=== PATIENT | male | born 1960 | race African-American/Black ===

== ENCOUNTER 2017-04-16 17:57 | Inpatient (IN) ==
[2017-04-16] MEDS ORDERED: HYDROmorphone 2 MG/1 ML VIAL IV STA (19:27)
[2017-04-16] MEDS ORDERED: ONDANSETRON 4 MG/2 ML VIAL IV STA (19:27)
[2017-04-16 19:34] LABS: Basophils % 0.2 % (0.0-0.8); Hematocrit 34.9 VOL% (42.0-52.0); Hemoglobin 12.1 GM/DL (14.0-18.0); Immature Granulocytes % 0.2 %; Immature Granulocytes Absolute 0.01 #; Lymphocytes # 1.1 10*3/uL (1.4-4.0); Lymphocytes % 25.5 % (21.2-54.2); Mean Corpuscular HGB Conc 34.7 GM/DL (32-36); Mean Corpuscular Hemoglobin 25 PG (27-34); Mean Corpuscular Volume 71.1 FL (87-102); Mean Platelet Volume 10.1 FL (9.6-12.0); Monocytes # 0.4 10*3/uL (0.11-0.8); Monocytes % 9.4 % (1.7-12.7); Neutrophils # 2.7 10*3/uL (1.4-7.4); Neutrophils % 63.7 % (38.7-73.9); Platelet Count 167 T/CUMM (130-400); Red Blood Count 4.91 MC/CUMM (3.8-5.5); Red Cell Distribution Width 14.8 % (9.3-17.3); White Blood Count 4.2 T/CUMM (4-12)
[2017-04-16 20:11] LABS: Apearance,Urine CLEAR (Clear); Bilirubin,Urine Negative (Negative); Blood, Urine Small mg/dL (Negative); Glucose,Urine (UA) Negative (Negative); Ketones,Urine Negative (Negative); Mucus,Urine Occasional /LPF (Occasional); Nitrite,Urine Negative (Negative); Protein,Urine 30 MG/DL; RBC,Urine <1 /HPF (0-4); Urine Color Straw (Yellow); Urine Specific Gravity 1.002 (1.001-1.035); Urine Urobilinogen < 2.0 EU/DL (0.2-1.0); WBC,Urine <1 /HPF (0-6)
--- NOTE | 2017-04-16 20:30 | XRay Report ---
History: Abdominal pain. Umbilical hernia Date: 04/16/2017 Study: Flat and erect abdomen Comparison exam: No previous similar There is no evidence of pneumoperitoneum. Peritoneal dialysis catheter overlies the pelvis at the midline. The bowel gas pattern is nonobstructive without gross mass lesion. No acute osseous abnormality is seen. Impression: No acute abnormality is identified. Peritoneal dialysis catheter PROCEDURE INTERPRETED AT [facility] DEPARTMENT OF RADIOLOGY Final Report Signed by: Dr. Joelle Anaya
[2017-04-16] MEDS ORDERED: HYDROmorphone 2 MG/1 ML VIAL ONE (20:36)
[2017-04-16] MEDS ORDERED: ONDANSETRON 4 MG/2 ML VIAL ONE (20:36)
--- NOTE | 2017-04-16 20:37 | CT Report ---
History: Abdominal pain. Umbilical hernia Date: 04/16/2017 Study: CT abdomen and pelvis without contrast Comparison exam: September 07, 2015 Technique: Spiral CT sections were obtained from the lung bases to the pubic symphysis without contrast. CT abdomen: The partially visualized lung bases are clear. There is no gross pleural or pericardial effusion. There is no evidence of pneumoperitoneum. There is moderate free fluid in the abdomen and pelvis which may be largely related to the patient's peritoneal dialysis. The liver, spleen, bile ducts, pancreas, and adrenal glands are unremarkable. The fluid-filled gallbladder is grossly unremarkable. The kidneys are atrophic in this patient known to be on dialysis. There is no renal mass. There is no focal aneurysm of the abdominal aorta. There is no bird bowel obstruction. There is some nonspecific shotty para-aortic lymphadenopathy. There are 2 separate small periumbilical hernias containing fat which have increased in size since the comparison CT. The larger hernia has some edematous fat which may indicate inflammation. CT pelvis: No soft tissue mass of the pelvis is seen. Small fat-containing inguinal hernias are present bilaterally. Impression: There are 2 separate small periumbilical hernias at the midline, each of which contains fat. There is some edematous fat within the larger hernia which may indicate trapped fat or nonspecific inflammation. There is no incarcerated bowel. There is moderate free fluid in the abdomen and pelvis which may be related to the patient's peritoneal dialysis No significant abnormality otherwise The CT exam was performed using one or more of the following dose reduction techniques: Automated exposure control, adjustment of the mA and/or kV according to patient size, or use of iterative reconstruction technique. PROCEDURE INTERPRETED AT [facility] DEPARTMENT OF RADIOLOGY Final Report Signed by: Dr. Joelle Anaya
--- NOTE | 2017-04-16 20:55 | Emergency Department Note ---
Katy Main Brittany, am scribing for, and in the presence of, Lavell Morton DO 19 :36. I, Lavell Morton DO, personally performed the services described in this documentation, ascribed by Bernie Burns in my presence, and it is both accurate and complete . Arrival - Arrival Chief Complaint: Abdominal / Flank Pain Stated Complaint: dialysis pt/navel swelling with pain ED Nursing Triage Note: c/o swelling to the umbilical area - states that the swelling started today., denies having increase temp., denies having chills, pertineal dialysis since October , states he has not done his dialysis today, states the area is very painful , Mode of Arrival: Ambulatory Limitations: No Limitations Source: Patient Time Seen by Provider: 04/16/17 19:22 - History of Present Illness HPI Narrative: This is a 58 y/o black male,who presents to the ED with c/o pain around the umbilical area which started 4 hours [facility] [employer]. He states the area is swollen more than normal. He denies any nausea. He has a known hx of renal failure and renal problems. He states he normally takes Dialysis at night. He states he took his last dialysis Tx last night. He reports he has been on the dialysis since October of 2016. Pt notes he has had a catheter since September of 2016 as well. He reports he has seen his PCP about the issue and reports she told him in the issue persists, he may have a hernia. Pt has no other complaints/pain in the ED a this time. Pt has a PMhx of HTN, CVA, cerebrovascular disease, renal problems, renal failure, dialysis at night. Pt has had an appendectomy and orthopedic surgery. Pt has a family medical Hx of HTN. Pt is a current every day smoker, but denies the use of alcohol and street drugs. Onset (ago): hour(s) (Started 4 hours [facility]) Consistency: constant Severity: moderate Allergies/Adverse Reactions: Allergies Allergy/AdvReac Type Severity Reaction Status Date / Time No Known Allergies Allergy Verified 04/16/17 18:05 Home Medications: Home Medications Medication Instructions Recorded Confirmed Type Hydralazine HCl 25 mg PO DAILY 05/14/15 07/29/16 History amLODIPine [Norvasc] 10 mg PO DAILY 10/07/15 12/22/16 History cloNIDine HCl [Clonidine HCl] 0.1 mg PO DAILY 05/14/15 07/29/16 History Review of System - Review of System 12 point system: reviewed and no additional remarkable complaints except as stated - Review of System Gastrointestinal: Present: abdominal pain (Swelling and pain around the umbilical area). Absent: nausea Medical,Surgical,& Family Hx - Medical History Cardio: History of: Cerebrovascular Disease, Hypertension No history of: CHF, CAD Neurology: History of: Cerebrovascular Accident (2011) No history of: Seizures Endocrine: No history of: Diabetes Mellitus (IDDM), Diabetes Mellitus (NIDDM) Respiratory: No history of: Asthma, COPD Renal: History of: Dialysis, Renal Failure (dr bo), Renal Problems Genitourinary: No history of: Bladder Problem, Prostate Problems, Genitourinary Cancer Gastrointestinal: No history of: Gastrointestinal Bleed, Hepatitis, Liver Problems, Pancreatitis Hematology: No history of: Anemia - Surgical History Abdominal Surgeries: Surgical HX of: Appendectomy Orthopedic Surgeries: Surgical HX of;: Orthopedic Surgery (Left femur fracture 05/2015) - Family History Family History: Reports;: Family Hypertension (mother) - Social History Smoking Status: Current every day smoker Frequency of Alcohol Use: None Type of Drug Use: None Exam Vital Signs: Vital Signs Temperature 97.8 F 04/16/17 18:53 Pulse Rate 82 04/16/17 20:00 Respiratory Rate 18 04/16/17 20:00 Blood Pressure 179/98 04/16/17 20:00 O2 Sat by Pulse Oximetry 100 04/16/17 18:53 - General General appearance: alert, in no apparent distress - Head Head exam: Present: atraumatic, normocephalic, normal inspection - Eye Eye exam: Present: normal appearance, PERRL, EOMI. Absent: nystagmus - ENT ENT exam: Present: normal exam, mucous membranes moist - Neck Neck exam: Present: normal inspection, full ROM, trachea midline. Absent: tenderness - Chest Chest inspection: Present: normal inspection, symmetric chest wall rise. Absent : tenderness - Respiratory Respiratory exam: Present: normal lung sounds bilaterally. Absent: respiratory distress - Cardiovascular Cardiovascular exam: Present: regular rate, normal rhythm, normal heart sounds. Absent: murmur, rubs, gallop, clicks, JVD - Abdominal Exam Abdominal exam: Present: soft, distention (Umbilical hernia present about 1.5 in in diameter), tenderness (Tenderness around the umbilical area), normal bowel sounds. Absent: guarding, rebound, rigidity - Rectal Exam Rectal exam: Present: deferred - Extremities Exam Extremities exam: Present: normal inspection, full ROM, normal capillary refill. Absent: tenderness, pedal edema, joint swelling, calf tenderness - Back Exam Back exam: Present: normal inspection, full ROM. Absent: tenderness, muscle spasm, rashes - Neurological Exam Neurological exam: Present: alert, oriented X3, CN II-XII intact. Absent: motor sensory deficit - Psychiatric Psychiatric exam: Present: normal affect, normal mood. Absent: depressed, agitated, anxious, flat affect, manic - Skin Skin exam: Present: warm, dry, intact, normal color. Absent: rash, cyanosis, diaphoresis, erythema, pallor, mottled Course - Reevaluation(s) Reevaluation #1: CT show incarcerated fat. Spoke with Dr. Garcia (surgeon)--states that since the pt is on dialysis that the hospitalist would need to admit and he would consult. Hospitalist to see pt here. Time: 20:53 Results - Labs CBC & BMP: 04/16/17 18:55 Disposition Clinical Impression: Umbilical hernia with obstruction Case discussed with: patient Disposition: Still a Patient Condition: Stable Time of Disposition: 20:54 (Hospitalist to admit)
[2017-04-16 21:18] LABS: Albumin 2.3 G/DL (3.4-5.0); Bilirubin,Total 0.4 MG/DL (0.2-1.0); Calcium 7.6 MG/DL (8.5-10.1); Osmolality,Calculated 269.1 MOS/KG (273-304); Potassium 2.6 MMOL/L (3.5-5.1); Total Protein 6.4 G/DL (6.4-8.3)
--- NOTE | 2017-04-16 21:27 | Hospitalist History & Physical ---
<Nohemy Stone - Last Filed: 04/16/17 23:50> Assessment and Plan - Time spent with patient Time spent with patient: Greater than 30 minutes Time spent discussing smoking cessation with patient: 3 to 10 minutes (1) Umbilical hernia Status: Acute Assessment and plan: Surgery consultation Pain medications PRN Will hold DVT prophylaxis for now due to likely surgery Current Visit: Yes (2) Chronic kidney disease Status: Chronic Assessment and plan: Will need to continue PD Nephrology consultation Creatinine baseline for patient Current Visit: No (3) HTN (hypertension) Status: Chronic Assessment and plan: Will resume medication regimen when home medicines confirmed Current Visit: No (4) Hypokalemia Status: Acute Assessment and plan: Will replace with K rider Pending AM labs Current Visit: Yes History of Present Illness Chief complaint: abdominal pain History of present illness: Called to [facility] for a Mr. Pino who is a 57 year old male that presents with a complaint of umbilical pain that started five hours ago. Patient states he was not doing any type of activity at the time he noticed the pain but realized when he ran his hand across his abdomen. He pulled his shirt up and noticed his protruding navel. He telephoned his home health nurse and she instructed him to go to the ED. Once in the ED, he received a CT A/P that revealed 2 separate small periumbilical hernias. The larger hernia suggest trapped fat or inflammation. No incarcerated bowel but moderate free fluid in A/P that could be related to peritoneal dialysis. Patient denied n/v/d, fevers, chest pain, shortness of breath, hematemsis, melena, but admitted to issues with constipation. His last BM was this AM and was described as normal. Patient has a history of peritoneal dialysis, HTN, left femur fracture, and appendectomy. He will be admitted into the hospital for surgical and nephrology consultation, pain and nausea medications, and electrolyte replacement. Home Medications Medication Instructions Recorded Confirmed Type Hydralazine HCl 25 mg PO DAILY 05/14/15 07/29/16 History amLODIPine [Norvasc] 10 mg PO DAILY 05/14/15 07/29/16 History cloNIDine HCl [Clonidine HCl] 0.1 mg PO DAILY 05/14/15 07/29/16 History Allergies Allergy/AdvReac Type Severity Reaction Status Date / Time No Known Allergies Allergy Verified 04/16/17 18:05 Medical,Surgical,& Family Hx - Medical History Cardio: History of: Cerebrovascular Disease, Hypertension No history of: CHF, CAD Neurology: History of: Cerebrovascular Accident (2011) No history of: Seizures Endocrine: No history of: Diabetes Mellitus (IDDM), Diabetes Mellitus (NIDDM) Respiratory: No history of: Asthma, COPD Renal: History of: Dialysis, Renal Failure (dr barragan), Renal Problems Genitourinary: No history of: Bladder Problem, Prostate Problems, Genitourinary Cancer Gastrointestinal: No history of: Gastrointestinal Bleed, Hepatitis, Liver Problems, Pancreatitis Hematology: No history of: Anemia - Surgical History Abdominal Surgeries: Surgical HX of: Appendectomy Orthopedic Surgeries: Surgical HX of;: Orthopedic Surgery (Left femur fracture 05/2015) - Family History Family History: Reports;: Family Cancer (mom, aunt, sister- breast CA; brother- colon CA; father-unknown CA), Family Hypertension (mother, sister, aunt) - Social History Smoking Status: Current every day smoker (1 pack per week) Have you smoked in the last 12 months: Yes Time spent discussing smoking cessation with patient: 3 to 10 minutes Frequency of Alcohol Use: None Type of Drug Use: None Marital Status: Single Lives With:: Parent Functional capacity: independent ambulation - Constitutional Constitutional: Absent: anorexia, chills, fatigue, fever(s), weakness - Cardiovascular Cardiovascular: Absent: chest pain at rest, chest pain with activity, dyspnea, edema, lightheadedness, palpitations - Respiratory Respiratory: Absent: cough, dyspnea, hemoptysis - Gastrointestinal Gastrointestinal: Present: abdominal pain, constipation. Absent: change in bowel habits, coffee ground emesis, diarrhea, dyspepsia, heartburn, hematemesis , loose stools, nausea - Genitourinary Genitourinary: Absent: difficulty urinating - Musculoskeletal Musculoskeletal: Absent: arthralgias Exam - Constitutional Vitals: Period Temp Pulse Resp BP Sys/Schilling Pulse Ox Last 24 Hr 97.8 F-98.1 F 79-88 18-18 155-179/80-98 100-100 General appearance: normal weight, no acute distress - Head Head exam: Present: normal inspection, normocephalic - Eye Eye exam: Present: EOMI Pupils: Present: IZABELLA, normal accommodation - ENT ENT exam: Present: normal exam, normal external ear exam - Neck Neck exam: Present: normal inspection - Respiratory Respiratory exam: Present: clear to auscultation bilaterally. Absent: accessory muscle use (Respirations even and non-labored. Symmetrical rise and fall of chest noted. ), rales - Cardiovascular Cardiovascular exam: Present: regular rate and rhythm. Absent: carotid bruit - GI/Abdominal GI/Abdominal exam: Present: normal bowel sounds, tenderness (periumbilical), soft, other (PD catheter intact to left abdomen). Absent: firm - Extremities Exam Extremities exam: Present: normal inspection, normal capillary refill - Back Exam Back exam: Present: normal inspection - Neurological Exam Neurological exam: Present: alert, oriented X3 (Answers all questions appropriately. Makes good eye contact. ) - Psychiatric Psychiatric exam: Present: normal affect, normal mood - Skin Skin exam: Present: normal color, warm, dry Results - Labs CBC & BMP: 04/16/17 18:55 04/16/17 20:41 Lab Results: I have reviewed the past 24 hour labs - Diagnostic Findings Procedure: CT Abdomen and Pelvis: report reviewed by me (2 periumbilical hernias ) <Jonh Tran - Last Filed: 04/17/17 02:22> Assessment and Plan (1) Umbilical hernia Status: Acute Assessment and plan: I saw and examined the patient in conjunction with nurse practitioner Nohemy Stone and agree with the above. The patient is having moderate pain at this point which was relieved by his pain medication. He is not vomiting. IV potassium replacement has completed. On exam there is some erythema associated with protruding umbilical hernia which is moderately tender including the surrounding area. Surgery has been consulted. The patient did just eat something at 2 AM. He will be made n.p.o. in case surgery wants to address this later today. Current Visit: Yes History of Present Illness History of present illness: Mr. Pino is a 57 year old male Exam - Constitutional Vitals: Period Temp Pulse Resp BP Sys/Schilling Pulse Ox Last 24 Hr 97.4 F-98.1 F 74-88 18-20 154-179/80-98 98-100 Results - Labs CBC & BMP: 04/16/17 18:55 04/16/17 20:41
[2017-04-16] MEDS ORDERED: ACETAMINOPHEN 325 MG TABLET PO PRN (22:14)
[2017-04-16] MEDS ORDERED: NICOTINE 21 MG/24 HR PATCH TRANSDERM PRN (22:14)
[2017-04-16] MEDS ORDERED: ONDANSETRON 4 MG/2 ML VIAL IV PRN (22:14)
[2017-04-16] MEDS ORDERED: DOCUSATE SODIUM 100 MG CAPSULE PO PRN (22:14)
[2017-04-17] MEDS: POTASSIUM CHLORIDE RIDER 10 MEQ in PREMIX 1 EACH IV SCH ×4 (00:41→04:46)
--- NOTE | 2017-04-17 07:40 | General Surgery Consult Note ---
Assessment and Plan - Time spent with patient Time spent with patient: Less than 30 minutes (1) Umbilical hernia Status: Acute Assessment and plan: This is actually an incarcerated incisional hernia. He had a laparoscopic appendectomy at this location. This is fat-containing only and does not have any evidence of obstruction. This needs to be repaired. He understands that this may interfere with his peritoneal dialysis and may result in leakage of fluid. He understands that he is at increased risk of abdominal complications and recurrence because of his peritoneal dialysis. We discussed the risk of peritonitis or injury to bowel or bladder, medical complications or anesthetic complications related to his renal failure. He understands these risks and wishes to proceed Current Visit: Yes History of Present Illness Chief complaint: Incarcerated hernia History of present illness: Mr. Pino is a 57 year old male Who for several days has had pain and swelling in his umbilicus. This actually feels better since he was admitted. He is on peritoneal dialysis and has been for the last year or so. His peritoneal catheter was placed at [facility]. He is not having nausea or vomiting. He is not having fever or chills. Home Medications Medication Instructions Recorded Confirmed Type Hydralazine HCl 25 mg PO DAILY 05/14/15 07/29/16 History amLODIPine [Norvasc] 10 mg PO DAILY 05/14/15 07/29/16 History cloNIDine HCl [Clonidine HCl] 0.1 mg PO DAILY 05/14/15 07/29/16 History Allergies Allergy/AdvReac Type Severity Reaction Status Date / Time No Known Allergies Allergy Verified 04/16/17 18:05 Medical,Surgical,& Family Hx - Medical History Cardio: History of: Cerebrovascular Disease, Hypertension No history of: CHF, CAD Neurology: History of: Cerebrovascular Accident (2011) No history of: Seizures Endocrine: No history of: Diabetes Mellitus (IDDM), Diabetes Mellitus (NIDDM) Respiratory: No history of: Asthma, COPD Renal: History of: Dialysis, Renal Failure (dr barragan), Renal Problems Genitourinary: No history of: Bladder Problem, Prostate Problems, Genitourinary Cancer Gastrointestinal: No history of: Gastrointestinal Bleed, Hepatitis, Liver Problems, Pancreatitis Hematology: No history of: Anemia - Surgical History Thoracic Surgeries: Patient denies;: Organ Transplant Abdominal Surgeries: Surgical HX of: Appendectomy Orthopedic Surgeries: Surgical HX of;: Orthopedic Surgery (Left femur fracture 05/2015) - Family History Family History: Reports;: Family Cancer (mom, aunt, sister- breast CA; brother- colon CA; father-unknown CA), Family Hypertension (mother, sister, aunt) - Social History Smoking Status: Current every day smoker (1 pack per week) Frequency of Alcohol Use: None Type of Drug Use: None - Constitutional Constitutional: Absent: chills, fever(s), weight loss - Cardiovascular Cardiovascular: Absent: chest pain at rest, chest pain with activity, dyspnea, dyspnea on exertion - Respiratory Respiratory: Absent: dyspnea, hemoptysis, dyspnea on exertion - Gastrointestinal Gastrointestinal: Present: abdominal pain. Absent: cramping, hematemesis, hematochezia, nausea, vomiting, jaundice - Genitourinary Genitourinary: Absent: hematuria - Musculoskeletal Musculoskeletal: Absent: back pain - Neurological Neurological: Absent: focal weakness, syncope - Endocrine Endocrine: Absent: polyuria Hematologic/Lymphatic: Absent: easy bleeding, easy bruising Exam - Constitutional Vitals: Period Temp Pulse Resp BP Sys/Schilling Pulse Ox Last 24 Hr 97.4 F-98.1 F 68-88 18-20 130-179/80-98 96-100 General appearance: no acute distress - Head Head exam: Present: normocephalic - Eye Eye exam: Absent: scleral icterus - ENT Mouth exam: Present: normal voice - Neck Neck exam: Present: trachea midline - Respiratory Respiratory exam: Present: clear to auscultation bilaterally. Absent: accessory muscle use - Cardiovascular Cardiovascular exam: Present: RRR - GI/Abdominal GI/Abdominal exam: Present: hernia, soft. Absent: distended, guarding, tenderness, rebound - Neurological Exam Neurological exam: Present: alert, oriented X3. Absent: motor sensory deficit Speech: Present: normal - Skin Skin exam: Present: normal color Quality Measures - VTE Contraindication to Pharmacological VTE Prophylaxis: High Risk of Bleeding - Stroke Symptom Onset Unknown: No Results - Labs CBC & BMP: 04/16/17 18:55 04/16/17 20:41 Lab Results: I have reviewed the past 24 hour labs
[2017-04-17 08:05] LABS: Basophils % 0.2 % (0.0-0.8); Eosinophils # 0.1 10*3/uL (0.0-0.87); Eosinophils % 1.7 % (0.00-10.9); Hematocrit 31.2 VOL% (42.0-52.0); Hemoglobin 10.8 GM/DL (14.0-18.0); Immature Granulocytes % 0.4 %; Immature Granulocytes Absolute 0.02 #; Lymphocytes # 0.8 10*3/uL (1.4-4.0); Lymphocytes % 17.7 % (21.2-54.2); Mean Corpuscular HGB Conc 34.6 GM/DL (32-36); Mean Corpuscular Hemoglobin 25 PG (27-34); Mean Corpuscular Volume 71.6 FL (87-102); Mean Platelet Volume 11.2 FL (9.6-12.0); Monocytes # 0.3 10*3/uL (0.11-0.8); Monocytes % 6.9 % (1.7-12.7); Neutrophils # 3.4 10*3/uL (1.4-7.4); Neutrophils % 73.1 % (38.7-73.9); Platelet Count 126 T/CUMM (130-400); Red Blood Count 4.36 MC/CUMM (3.8-5.5); Red Cell Distribution Width 15.2 % (9.3-17.3); White Blood Count 4.6 T/CUMM (4-12)
[2017-04-17 08:20] LABS: Fibrinogen Quant Value 349 MG% (200-400); INR 1.1; PT Patient Result 11.5 SECS; Partial Thromboplastin Time 25.4 SECS (0-40)
[2017-04-17 08:50] LABS: Albumin 1.9 G/DL (3.4-5.0); Bilirubin,Total 0.7 MG/DL (0.2-1.0); Calcium 7.5 MG/DL (8.5-10.1); Osmolality,Calculated 276.5 MOS/KG (273-304); Potassium 3.4 MMOL/L (3.5-5.1); Total Protein 5.5 G/DL (6.4-8.3)
[2017-04-17] MEDS: PANTOPRAZOLE 40 MG TABLET PO SCH (09:47)
--- NOTE | 2017-04-17 10:05 | Hospitalist Progress Note ---
Assessment and Plan (1) Incisional hernia Status: Acute Assessment and plan: He has an incarcerated incisional hernia. He is scheduled to undergo surgery. Current Visit: Yes Hospitalist: Subjective Interval history: Patient is doing well with no complaints. He was seen in consultation by general surgery. It is their impression that he has an incarcerated incisional hernia. He is scheduled to undergo surgery. Exam - Constitutional Vitals: Period Temp Pulse Resp BP Sys/Schilling Pulse Ox Last 24 Hr 97.4 F-98.1 F 68-88 18-20 130-179/80-98 96-100 General appearance: no acute distress - Head Head exam: Present: normal inspection - Neck Neck exam: Present: normal inspection - Respiratory Respiratory exam: Present: clear to auscultation bilaterally - Cardiovascular Cardiovascular exam: Present: regular rate and rhythm - GI/Abdominal GI/Abdominal exam: Present: normal bowel sounds, soft, other (Nontender with no palpable masses or hepatosplenomegaly.) - Extremities Exam Extremities exam: Present: normal inspection - Skin Skin exam: Present: normal color, warm, intact Results - Labs CBC & BMP: 04/17/17 07:30 04/17/17 07:30 Quality Measures - VTE Contraindication to Pharmacological VTE Prophylaxis: High Risk of Bleeding - Stroke Symptom Onset Unknown: No
--- NOTE | 2017-04-17 11:21 | Nephrology Consult Note ---
History of Present Illness Chief complaint: End-stage renal disease History of present illness: Mr. Pino is a 57 year old male history of end-stage renal disease currently on peritoneal dialysis has been on dialysis for approximately 1 year. He continues to do well his PD exchanges. On yesterday patient noticed umbilical hernia that was associated with severe pain. CT scan confirmed a hernia and noted that it was reproducible on examination with surgery. Patient is scheduled to have the hernia repaired. Nephrology is been consulted for renal issues. Discussion with patient about the possibility of needing to do hemodialysis he states he is very resistant of doing hemodialysis other than his peritoneal exchanges. At this time continuing to support patient with PD dialysis and will continue with PD exchanges lower volumes at 2 L of dialysate fluid. Home Medications Medication Instructions Recorded Confirmed Type amLODIPine [Norvasc] 10 mg PO DAILY 05/14/15 04/17/17 History cloNIDine HCl [Clonidine HCl] 0.1 mg PO BID 05/14/15 04/17/17 History Calcitriol 0.5 mcg PO DAILY 04/17/17 04/17/17 History Lisinopril [Prinivil] 20 mg PO DAILY 04/17/17 04/17/17 History Allergies Allergy/AdvReac Type Severity Reaction Status Date / Time No Known Allergies Allergy Verified 04/16/17 18:05 Medical,Surgical,& Family Hx - Medical History Cardio: History of: Cerebrovascular Disease, Hypertension No history of: CHF, CAD Neurology: History of: Cerebrovascular Accident (2011) No history of: Seizures Endocrine: No history of: Diabetes Mellitus (IDDM), Diabetes Mellitus (NIDDM) Respiratory: No history of: Asthma, COPD Renal: History of: Dialysis, Renal Failure (dr barragan), Renal Problems Genitourinary: No history of: Bladder Problem, Prostate Problems, Genitourinary Cancer Gastrointestinal: No history of: Gastrointestinal Bleed, Hepatitis, Liver Problems, Pancreatitis Hematology: No history of: Anemia - Surgical History Thoracic Surgeries: Patient denies;: Organ Transplant Abdominal Surgeries: Surgical HX of: Appendectomy Orthopedic Surgeries: Surgical HX of;: Orthopedic Surgery (Left femur fracture 05/2015) - Family History Family History: Reports;: Family Cancer (mom, aunt, sister- breast CA; brother- colon CA; father-unknown CA), Family Hypertension (mother, sister, aunt) - Social History Smoking Status: Current every day smoker (1 pack per week) Frequency of Alcohol Use: None Type of Drug Use: None Review of Systems Constitutional: no fatigue, no fever(s), no lethargy Gastrointestinal: abdominal pain, other (Hernia) Genitourinary: no flank pain Musculoskeletal: no arthralgias Exam - Vital Signs Vital signs: Period Temp Pulse Resp BP Sys/Schilling Pulse Ox Last 24 Hr 97.4 F-98.1 F 68-88 18-20 130-179/80-98 96-100 - General Appearance General appearance: well-developed, well-nourished EENT: ATNC Neck: supple Respiratory: clear Cardiology: regular rate, regular rhythm Gastrointestinal: normoactive bowel sounds, no guarding (Umbilical hernia noted) Integumentary: no rash Neurologic: alert and oriented x3, CN 3-12 intact Musculoskeletal: no clubbing Psychiatric: mood/affect appropriate, cooperative Results - Labs CBC & BMP: 04/17/17 07:30 04/17/17 07:30 Assessment and Plan (1) End stage renal disease Status: Chronic Assessment and plan: Continue with PD exchanges 2 L bags 2.5% dextrose 4 hour dwells 4 exchanges. Current Visit: Yes (2) HTN (hypertension) Status: Chronic Current Visit: No Qualifiers: Hypertension type: essential hypertension Qualified Code(s): I10 - Essential (primary) hypertension (3) Umbilical hernia with obstruction Status: Acute Assessment and plan: Appreciate input from surgery. Current Visit: Yes
[2017-04-17] MEDS: cloNIDine 0.1 MG TABLET PO SCH (20:59)
--- NOTE | 2017-04-18 08:07 | EKG Report ---
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
[2017-04-18] MEDS ORDERED: LIDOCAINE 1%/EPI INJ 20 ML VIAL ONE (08:21)
[2017-04-18] MEDS ORDERED: ceFAZolin 1,000 MG VIAL ONE (08:21)
[2017-04-18] MEDS ORDERED: BUPIVACAINE MPF 0.25% /EPI 30 ML VIAL ONE (08:21)
[2017-04-18] MEDS ORDERED: PROPOFOL 200 MG/20 ML VIAL IV ONE (08:31)
[2017-04-18] MEDS ORDERED: LIDOCAINE 2% 5 ML VIAL ONE (08:31)
[2017-04-18] MEDS ORDERED: ROCURONIUM 100 MG/10 ML VIAL IV ONE (08:31)
[2017-04-18] MEDS ORDERED: ESMOLOL 100 MG/10 ML VIAL IV ONE (08:31)
[2017-04-18] MEDS ORDERED: GLYCOPYRROLATE 0.4 MG/2 ML VIAL ONE (08:31)
[2017-04-18] MEDS ORDERED: NEOSTIGMINE 10 MG/10 ML VIAL ONE (08:31)
[2017-04-18] MEDS ORDERED: ONDANSETRON 4 MG/2 ML VIAL ONE (08:31)
--- NOTE | 2017-04-18 09:15 | Operative Note ---
Date of procedure: 04/18/17 Pre-op diagnosis: Incarcerated incisional hernia at umbilicus Post-op diagnosis: same Procedure: Repair incarcerated incisional hernia at umbilicus Findings and technique: After informed consent was obtained patient was brought the operating room and placed in supine position. After successful induction with general anesthesia the patient's abdomen was prepped and draped in usual sterile fashion. An Ioban drape was placed over the skin. Local anesthesia was infiltrated and a small transverse incision made at his umbilicus with sharp dissection was carried down to the hernia sac. This was opened and noted to contain omentum. This was reduced back into the peritoneal cavity and the sac was excised. The fascial defect was about a centimeter in size. This was closed transversely with interrupted 0 Prolene suture in a horizontal mattress fashion. Wound was closed the deep layer of interrupted 3-0 Vicryl suture and skin with skin clips. Anesthesia: GETA, local Surgeon / Physician: Jos Damon III. Estimated blood loss: none Specimens: other (Hernia sac) Condition: stable Disposition: PACU Results - Labs CBC & BMP: 04/17/17 07:30 04/17/17 07:30 Discharge Plan - Discharge Medications No Action Lisinopril [Prinivil] 20 mg PO DAILY Calcitriol 0.5 mcg PO DAILY amLODIPine [Norvasc] 10 mg PO DAILY cloNIDine HCl [Clonidine HCl] 0.1 mg PO BID - Follow Up or Referral - Forms/Instructions
[2017-04-18] MEDS ORDERED: SEVOFLURANE 1 UNIT/15 MINUTE INH ONE (09:40)
[2017-04-18] MEDS ORDERED: MIDAZOLAM 2 MG/2 ML VIAL ONE (09:40)
[2017-04-18] MEDS ORDERED: fentaNYL 100 MCG/2 ML VIAL ONE (09:40)
[2017-04-18] MEDS: PANTOPRAZOLE 40 MG TABLET PO SCH (10:48)
[2017-04-18] MEDS: LISINOPRIL 20 MG TABLET PO SCH (10:48)
[2017-04-18] MEDS: cloNIDine 0.1 MG TABLET PO SCH ×2 (10:49→21:08)
[2017-04-18] MEDS: amLODIPine 10 MG TABLET PO SCH (10:49)
--- NOTE | 2017-04-18 11:39 | Hospitalist Progress Note ---
Assessment and Plan (1) Incisional hernia Status: Acute Assessment and plan: He is stable status post repair of incarcerated inguinal incisional hernia. Current Visit: Yes Hospitalist: Subjective Interval history: Patient is stable status post repair of incarcerated incisional inguinal hernia. Exam - Constitutional Vitals: Period Temp Pulse Resp BP Sys/Schilling Pulse Ox Last 24 Hr 97.4 F-98.9 F 65-104 16-20 136-174/69-97 98-100 General appearance: no acute distress - Head Head exam: Present: normal inspection - Neck Neck exam: Present: normal inspection - Respiratory Respiratory exam: Present: clear to auscultation bilaterally - Cardiovascular Cardiovascular exam: Present: regular rate and rhythm - GI/Abdominal GI/Abdominal exam: Present: normal bowel sounds, other (Incision is bandaged.) - Extremities Exam Extremities exam: Present: normal inspection - Skin Skin exam: Present: normal color, warm, intact Results - Labs CBC & BMP: 04/17/17 07:30 04/17/17 07:30 Quality Measures - VTE Contraindication to Pharmacological VTE Prophylaxis: High Risk of Bleeding - Stroke Symptom Onset Unknown: No
--- NOTE | 2017-04-18 11:47 | Anesthesia Post-Op ---
Anesthesia Post OP - Post Ansesthetic Evaluation Patient seen in post op: Yes Resp: within normal limits CV: within normal limits Mental: within normal limits Temp: within normal limits [id number]: within normal limits Nausea and Vomiting: within normal limits Pain: within normal limits
--- NOTE | 2017-04-18 14:02 | Nephrology Progress Note ---
Nephrology - PN: Subj Interval history: The patient is resting he is now status post hernia repair. No other acute changes. At this time will do 1 L volume PD exchanges today and tomorrow. Exam (PN)-Nephrology - Vital Signs Vital signs: Period Temp Pulse Resp BP Sys/Schilling Pulse Ox Last 24 Hr 97.4 F-98.9 F 65-104 16-20 136-174/69-97 98-100 - General Appearance General appearance: well-developed, well-nourished EENT: ATNC Neck: supple Respiratory: clear Cardiology: regular rate, regular rhythm Gastrointestinal: normoactive bowel sounds, no tenderness Neurologic: alert and oriented x3 Musculoskeletal: no clubbing Psychiatric: mood/affect appropriate, cooperative - Lab 04/17/17 07:30 04/17/17 07:30 Most recent lab results Calcium 7.5 MG/DL (8.5-10.1) L 04/17/17 07:30 Assessment and Plan (1) End stage renal disease Status: Chronic Assessment and plan: Continue with PD exchanges 1 L l bags 2.5% dextrose 4 hour dwells 4 exchanges. Current Visit: Yes (2) HTN (hypertension) Status: Chronic Current Visit: No Qualifiers: Hypertension type: essential hypertension Qualified Code(s): I10 - Essential (primary) hypertension (3) Umbilical hernia with obstruction Status: Acute Assessment and plan: Appreciate input from surgery. Current Visit: Yes
[2017-04-18] MEDS ORDERED: PHENOL 1.4% THROAT SPRAY 177 ML BOTTLE PO PRN (16:06)
--- NOTE | 2017-04-19 07:09 | Event Note ---
He feels well. He has had no drainage from his wound since he is gotten peritoneal dialysis. His abdomen appears benign. He is afebrile with stable vital signs. It is fine from my standpoint to discharge him when he is ready medically. I would like to see him back in the clinic in the next 1-2 weeks.
[2017-04-19 08:18] VITALS: BP 171/90
[2017-04-19] MEDS: amLODIPine 10 MG TABLET PO SCH (09:32)
[2017-04-19] MEDS: cloNIDine 0.1 MG TABLET PO SCH (09:32)
[2017-04-19] MEDS: LISINOPRIL 20 MG TABLET PO SCH (09:33)
[2017-04-19] MEDS: PANTOPRAZOLE 40 MG TABLET PO SCH (09:33)
--- NOTE | 2017-04-19 10:05 | Discharge Summary ---
Hospital Course - Hospital Course Hospital Course: Mr. mancilla was admitted to the hospital with complaints of abdominal pain. He was seen in consultation by Dr. Damon of surgery who performed a repair of an incarcerated incisional inguinal hernia on 04/18/17. He tolerated the procedure without any complication. At the time of his discharge he was comfortable with no complaints and eager to go home. Diagnosis - Discharge Diagnosis (1) Incisional hernia Status: Acute Discharge Plan - Discharge Data Disposition: Disch To Home/Self Care Condition at Discharge: Stable Discharge Diet: advance to your usual diet Activity: resume usual activities as tolerated - Discharge Medications New HYDROcodone/ACETAMIN 5-325 [[place] 5-325] 1 tablet PO Q4H PRN tablet PRN Reason: Pain Mild (1-3) Continue Lisinopril [Prinivil] 20 mg PO DAILY #30 Calcitriol 0.5 mcg PO DAILY amLODIPine [Norvasc] 10 mg PO DAILY cloNIDine HCl [Clonidine HCl] 0.1 mg PO BID - Follow Up or Referral - Forms/Instructions Exam - Constitutional Vitals: Period Temp Pulse Resp BP Sys/Schilling Pulse Ox Last 24 Hr 97.2 F-98.3 F 65-75 14-22 145-174/78-97 96-100 DS: Provider Date of admission: 04/16/17 21:04 Primary care physician: BRETT WAYNE Attending physician on admission: Jonh Tran MD Consults: 04/16/17 22:14 Consult to Physician [CONS] Routine Comment: PD Consulting Provider: Edison Islas Jr. Consulting Provider Notified: Yes Person Notified: Dr. Islas Date Notified: 04/17/17 Time Notified: 07:42 Consult to Physician [CONS] Routine Comment: umbilical hernia Consulting Provider: Jos Damon III. Consulting Provider Notified: Yes Person Notified: Dr. Marisol GAR Date Notified: 04/17/17 Time Notified: 07:00 Discharging clinician: Kyler Hong
--- NOTE | 2017-04-19 11:18 | Pathology Report from [facility] ---
[facility] ACCESSION # : [id number] PATIENT NAME : Boom Casey ORDERING DR : LICO FARMER III, MD CLINICAL HX: Incarcerated incisional hernia POST-OP DX: same SPECIMEN INFO: Hernia sac GROSS DESCRIPTION: The specimen is received in formalin labeled with the patients name and consists of a 2.2 x 1.5 x 0.8 cm pink-patrick fatty tissue fragment. Sectioned and submitted in one cassette. DIAGNOSIS FOR BOOM CASEY: TISSUE LABELED HERNIA SAC: Fibrovascular connective tissue with chronic inflammation consistent with clinical history of hernia sac. COLLECTED DATE: 04/18/2017 [facility] REPORT DATE: 04/19/2017 ELECTRONICALLY SIGNED BY: Homa Mcqueen III, M.D. 04/19/2017 - 10:11:28 [facility]
== END 2017-04-19 11:21 | disposition home or self-care (01) | DRG 353 ==
LOC: N.ED 17:57 → SUATTDRO 21:04 → N.EDINP 21:04 → N.2E 21:47
PROVIDERS: ADMIT Family Medicine

== ENCOUNTER 2017-05-10 07:54 | Inpatient (IN) ==
[2017-05-10] MEDS ORDERED: ONDANSETRON 4 MG/2 ML VIAL IV STA (08:25)
[2017-05-10] MEDS ORDERED: HYDROmorphone 2 MG/1 ML VIAL IV STA (08:25)
[2017-05-10] MEDS ORDERED: ONDANSETRON 4 MG/2 ML VIAL ONE (08:42)
[2017-05-10 08:43] LABS: Basophils % 0.2 % (0.0-0.8); Hematocrit 33.2 VOL% (42.0-52.0); Hemoglobin 11.5 GM/DL (14.0-18.0); Immature Granulocytes % 0.2 %; Immature Granulocytes Absolute 0.01 #; Lymphocytes # 0.4 10*3/uL (1.4-4.0); Lymphocytes % 8.7 % (21.2-54.2); Mean Corpuscular HGB Conc 34.6 GM/DL (32-36); Mean Corpuscular Hemoglobin 25 PG (27-34); Mean Corpuscular Volume 70.6 FL (87-102); Mean Platelet Volume 8.8 FL (9.6-12.0); Monocytes # 0.3 10*3/uL (0.11-0.8); Monocytes % 6.1 % (1.7-12.7); Neutrophils # 4.3 10*3/uL (1.4-7.4); Neutrophils % 84.8 % (38.7-73.9); Platelet Count 151 T/CUMM (130-400); Red Cell Distribution Width 15.7 % (9.3-17.3); White Blood Count 5.1 T/CUMM (4-12)
[2017-05-10] MEDS ORDERED: HYDROmorphone 2 MG/1 ML VIAL ONE (08:43)
--- NOTE | 2017-05-10 08:55 | Emergency Department Note ---
Michele Main Gwan, am scribing for, and in the presence of, Lizandro Flor MD 08:09 . Basia Main James D, MD, personally performed the services described in this documentation, ascribed by Cyndee Bautista in my presence, and it is both accurate and complete 855 . Arrival - Arrival Stated Complaint: abd pain Mode of Arrival: Ambulatory Limitations: No Limitations Source: Patient, Old Records Reviewed, RN Notes Reviewed - History of Present Illness HPI Narrative: Patient is a 57 y/o male, with a hx of renal failure (Peritoneal) and CVA (2011) , who presents to the ED with a c/o abd pain 2000 last night. Pt confirmed that his abd pain is exacerbated with movement and direct palpation. He continued to note that he had a hernia repair performed by Dr. Damon. His last BM was yesterday. Patient is followed by Dr. Barragan. During exam, pt displayed discomfort but not in any distress. No other problems/complaints reported in ED. Consistency: constant Allergies/Adverse Reactions: Allergies Allergy/AdvReac Type Severity Reaction Status Date / Time No Known Allergies Allergy Verified 04/16/17 18:05 Home Medications: Home Medications Medication Instructions Recorded Confirmed Type amLODIPine [Norvasc] 10 mg PO DAILY 05/14/15 05/10/17 History cloNIDine HCl [Clonidine HCl] 0.1 mg PO BID 05/14/15 05/10/17 History Calcitriol 0.5 mcg PO DAILY 04/17/17 05/10/17 History HYDROcodone/ACETAMIN 5-325 [[place] 1 tablet PO Q4H PRN tablet 04/19/17 05/10/17 Rx 5-325] Lisinopril [Prinivil] 20 mg PO DAILY #30 04/19/17 05/10/17 Rx Review of System - Review of System 12 point system: reviewed and no additional remarkable complaints except as stated - Review of System Constitutional: Absent: chills, fever Gastrointestinal: Present: as per HPI, abdominal pain Medical,Surgical,& Family Hx - Medical History Cardio: History of: Cerebrovascular Disease, Hypertension No history of: CHF, CAD Neurology: History of: Cerebrovascular Accident (2011) No history of: Seizures Endocrine: No history of: Diabetes Mellitus (IDDM), Diabetes Mellitus (NIDDM) Respiratory: No history of: Asthma, COPD Renal: History of: Dialysis, Renal Failure (dr barragan), Renal Problems Genitourinary: No history of: Bladder Problem, Prostate Problems, Genitourinary Cancer Gastrointestinal: No history of: Gastrointestinal Bleed, Hepatitis, Liver Problems, Pancreatitis Hematology: No history of: Anemia - Surgical History Thoracic Surgeries: Patient denies;: Organ Transplant Abdominal Surgeries: Surgical HX of: Appendectomy Orthopedic Surgeries: Surgical HX of;: Orthopedic Surgery (Left femur fracture 05/2015) - Family History Family History: Reports;: Family Cancer (mom, aunt, sister- breast CA; brother- colon CA; father-unknown CA), Family Hypertension (mother, sister, aunt) - Social History Smoking Status: Current every day smoker (1 pack per week) Exam Physical Examination: GENERAL: This is a black male in no apparent distress. VITAL SIGNS: HEENT: Head is normocephalic and atraumatic. Pupils are equally round and reactive to light. Extraocular movement are intact. Oropharynx is benign with moist mucous membranes. NECK: Neck is soft and supple without tenderness. There are no masses. There is no lymphadenopathy. LUNGS: Lungs are clear to auscultation bilaterally. Chest rises symmetrically. There is no chest wall tenderness. CV: Heart is regular rate and rhythm without murmurs, rubs, or gallops. ABDOMEN: Abdomen is soft, generalized abdominal tenderness with rebound and guarding consistent with peritonitis. There are no abnormal masses palpated. There is no organomegaly. Bowel sounds are present and active. SKIN: Skin is warm and dry. No rash. EXTREMITIES: Patient has full range of motion without tenderness. There is no pedal edema. NEUROLOGIC: Awake, alert, and oriented x4. Cranial nerves II through XII are grossly intact. There are no motorsensory deficits. PSYCHIATRIC: Normal affect. Normal mood. Vital Signs: Vital Signs Temperature 98.2 F 05/10/17 08:03 Pulse Rate 87 05/10/17 08:53 Respiratory Rate 20 05/10/17 08:53 Blood Pressure 158/86 05/10/17 08:53 O2 Sat by Pulse Oximetry 97 05/10/17 08:53 Course Course Narrative: Cloudy fluid was obtained from peritoneal catheter - Consultations Consultation #1: Discussed with hospitalist. Patient will be admitted to their service. Time: 08:52 Results - Labs CBC & BMP: 05/10/17 08:28 05/10/17 08:26 Lab Results: I have reviewed the patients labs Labs: Laboratory Tests 05/10/17 08:28 Fluid Tot Cell Count 100 Fluid Neutrophils 88 Fluid Lymphocytes 11 Fluid Monocytes 1 Dialysate WBC 89639 Dialysate RBC 450 Microbiology 05/10/17 08:28 Peritoneal Fluid - Peritoneal Gram Stain - Final No organisms seen - Diagnostic Findings Procedure: Abdominal x-ray: image reviewed by me (Nonspecific gas pattern, no free air, gas in the rectum, peritoneal catheter in position), Chest x-ray: image reviewed by me (Atelectasis right lower lobe) Disposition Clinical Impression: Peritonitis due to infected peritoneal dialysis catheter, End-stage renal disease on peritoneal dialysis, Essential hypertension, History of umbilical hernia repair Case discussed with: patient Disposition: Still a Patient Condition: Stable Time of Disposition: 08:53
[2017-05-10 09:01] LABS: Burr Cells Slight; Giant Platelets Few; Hypochromasia 1+; Ovalocytes Slight; Platelet Estimate Normal
[2017-05-10 09:02] LABS: Microcytosis Slight
--- NOTE | 2017-05-10 09:05 | XRay Report ---
Exam: XR chest 1V Indication: Abdominal pain Comparison study: 09/16/2015 radiograph Findings: The heart, mediastinum and bony structures are stable from prior. There has been development of right basilar interstitial opacities and blunting of the right costophrenic angle. Otherwise, similar chronic interstitial scarring changes are again noted throughout both lungs. Minimal peribronchial thickening is also noted centrally. There is no pneumothorax. Impression: Chronic interstitial changes with development of perihilar interstitial opacities, right basilar opacities and blunting of costophrenic angle may represent superimposed bronchitis changes and/or right basilar pneumonia and trace pleural fluid. Consider follow-up radiograph to document resolution. PROCEDURE INTERPRETED AT [facility] DEPARTMENT OF RADIOLOGY Final Report Signed by: Francesco Hernandez
--- NOTE | 2017-05-10 09:08 | XRay Report ---
XR abdomen 2V Clinical Information: Abdominal Pain Comparison: None Findings: Bowel gas pattern is nonspecific and within normal limits. No abnormally dilated small bowel loops are identified to suggest obstruction. There is no free air identified. Scattered fecal material is noted throughout colon, which is otherwise nondilated. No abnormal focal soft tissue masses or calcific densities are identified in the abdomen or pelvis. Peritoneal dialysis catheter noted in place. Right lung base demonstrates patchy opacities which are new from prior. There is no acute osseous abnormality. No suspicious osseous lesions are identified. Impression: No acute radiographic abnormality in the abdomen. Right basilar opacities may represent developing right lung base infiltrate/pneumonia and pleural fluid. PROCEDURE INTERPRETED AT [facility] DEPARTMENT OF RADIOLOGY Final Report Signed by: Francesco Hernandez
[2017-05-10] MEDS ORDERED: PROMETHAZINE 25 MG/1 ML VIAL IM PRN (09:31)
[2017-05-10] MEDS ORDERED: ACETAMINOPHEN 325 MG TABLET PO PRN ×2 (09:31)
[2017-05-10] MEDS ORDERED: guaiFENesin/DM ER 600-30 MG TABLET PO PRN (09:31)
[2017-05-10] MEDS ORDERED: NICOTINE 21 MG/24 HR PATCH TRANSDERM PRN (09:31)
[2017-05-10] MEDS ORDERED: diphenhydrAMINE CAP 25 MG CAPSULE PO PRN (09:31)
--- NOTE | 2017-05-10 09:39 | Hospitalist History & Physical ---
<Payal Jones - Last Filed: 05/10/17 09:36> Assessment and Plan - Time spent with patient Time spent with patient: Greater than 30 minutes (1) Peritonitis due to infected peritoneal dialysis catheter Status: Acute Current Visit: Yes (2) End-stage renal disease on peritoneal dialysis Status: Acute Assessment and plan: 57-year-old -[place] male with history of end-stage renal disease on peritoneal dialysis, hypertension, tobacco abuse admitted by the hospitalist service with peritonitis. Patient's labs and peritoneal fluid is pending from the lab. Patient will be started on Zosyn and Flagyl for now. Consult Dr. Ibrahim for Dr. Barragan for evaluation to see if this can be treated or if PD catheter needs to be removed. Both chest and abdominal x-ray are showing a questionable pneumonia and the Zosyn should cover this as well. Patient will be given pain and nausea medicine and clear liquids for now. Dr. Hong will see and examine patient and further recommendations to follow. Current Visit: Yes (3) Essential hypertension Status: Acute Current Visit: Yes (4) History of umbilical hernia repair Status: Acute Current Visit: Yes (5) Pneumonia Status: Acute Current Visit: Yes History of Present Illness Chief complaint: Abdominal pain History of present illness: Mr. Pino is a 57 year old -[place] male with history of hypertension , tobacco abuse, and end-stage renal disease on PD presenting to the ED with a 1 day history of increasing abdominal pain and nausea. Patient states he was in his normal state of health until last night when he felt his PD for the night. He started having abdominal pain with nausea but no vomiting. He states it increased over the night and worsened this morning. Patient is lying on his side and doubled over. He is afebrile, vital signs stable and his white count is normal. PD fluid removed from his abdomen was cloudy and has been sent to the lab. Patient is tender throughout the abdomen with peritoneal signs. He had incarcerated incisional hernia repair at the umbilicus on [address] Marisol GAR. This incision looks good and is healing well. He denies shortness of breath or chest pain or lower extremity edema. His inspector dials is Dr. Barragan his family physician is Dr. [facility]. After discussion with Dr. Flor the ED physician and Dr. Hong the admitting hospitalist, it was agreed patient be admitted for further evaluation and treatment. Patient's medicines will be reconciled once verified in the system and he is a full code. Home Medications Medication Instructions Recorded Confirmed Type amLODIPine [Norvasc] 10 mg PO DAILY 05/14/15 05/10/17 History cloNIDine HCl [Clonidine HCl] 0.1 mg PO BID 05/14/15 05/10/17 History Calcitriol 0.5 mcg PO DAILY 04/17/17 05/10/17 History HYDROcodone/ACETAMIN 5-325 [[place] 1 tablet PO Q4H PRN tablet 04/19/17 05/10/17 Rx 5-325] Lisinopril [Prinivil] 20 mg PO DAILY #30 04/19/17 05/10/17 Rx Allergies Allergy/AdvReac Type Severity Reaction Status Date / Time No Known Allergies Allergy Verified 04/16/17 18:05 Medical,Surgical,& Family Hx - Medical History Cardio: History of: Cerebrovascular Disease, Hypertension No history of: CHF, CAD Neurology: History of: Cerebrovascular Accident (2011) No history of: Seizures Endocrine: No history of: Diabetes Mellitus (IDDM), Diabetes Mellitus (NIDDM) Respiratory: No history of: Asthma, COPD Renal: History of: Dialysis, Renal Failure (dr barragan), Renal Problems Genitourinary: No history of: Bladder Problem, Prostate Problems, Genitourinary Cancer Gastrointestinal: No history of: Gastrointestinal Bleed, Hepatitis, Liver Problems, Pancreatitis Hematology: No history of: Anemia - Surgical History Thoracic Surgeries: Patient denies;: Organ Transplant Abdominal Surgeries: Surgical HX of: Appendectomy, Hernia Repair Orthopedic Surgeries: Surgical HX of;: Orthopedic Surgery (Left femur fracture 05/2015) - Family History Family History: Reports;: Family Cancer (mom, aunt, sister- breast CA; brother- colon CA; father-unknown CA), Family Hypertension (mother, sister, aunt) - Social History Smoking Status: Current every day smoker (1 pack per week) Have you smoked in the last 12 months: Yes Frequency of Alcohol Use: None Type of Drug Use: None Marital Status: Single Lives With:: Alone Functional capacity: independent ambulation 12 point system: reviewed and no additional remarkable complaints except as stated Exam - Constitutional Vitals: Period Temp Pulse Resp BP Sys/Schilling Pulse Ox Last 24 Hr 98.2 F 87-93 20-22 141-148/76-82 100 Exam: Constitutional System: Mild distress. No tremulousness. Head: Normocephalic, atraumatic. Ears, Nose and Throat System: No evidence of Otitis or Mastoiditis. No epistaxis or discharge Eyes System: Pupils equal, round, and reactive. Extraocular muscles intact. Neck: Supple, without adenopathy, No jugular venous distention. No thyromegaly, neck mass, or prior surgery apparent. Respiratory System: Chest clear to auscultation. Cardiovascular System: Heart with regular rate and rhythm. No murmur. GI System: Abdomen mildly distended, moderately tender. Normo active bowel sounds present. Peritoneal signs, PD cath intact, incisional hernia repair looks good Musculoskeletal System: limbs with no pedal edema. Full distal pulses. Neurological System: No discernable sensory deficit. No aphasia Psychiatric System: Conversation is rational Results - Labs CBC & BMP: 05/10/17 08:28 Lab Results: I have reviewed the past 24 hour labs - Diagnostic Findings Procedure: Abdominal x-ray: report reviewed by me (No acute radiographic abnormality in the abdomen. Right basilar opacities representing developing right lung base infiltrate/pneumonia and pleural fluid), Chest x-ray: report reviewed by me (Chronic interstitial changes with development of perihilar interstitial opacities, right basilar opacities and blunting of costophrenic angle may represent superimposed bronchitis changes and/or right basilar pneumonia and trace pleural fluid.) <Kyler Hong - Last Filed: 05/10/17 11:40> History of Present Illness History of present illness: Mr. Pino is a 57 year old male who is being admitted to the hospital with peritonitis complicating chronic peritoneal dialysis for end-stage renal disease. I have interviewed and examined the patient and reviewed all available laboratory and radiographic test results. I agree with the assessment and plans of JAZIEL Mcqueen. The patient is being admitted to the hospital, begun on antibiotics, will be seen in consultation by nephrology for management of dialysis. Exam - Constitutional Vitals: Period Temp Pulse Resp BP Sys/Schilling Pulse Ox Last 24 Hr 98.2 F 85-93 20-22 141-158/76-86 97-100 Results - Labs CBC & BMP: 05/10/17 08:28 05/10/17 08:26
[2017-05-10] MEDS ORDERED: SODIUM CHLORIDE 0.9% 1,000 ML IV SCH (10:00)
[2017-05-10] MEDS ORDERED: PIPERACILLIN/TAZOBACTAM 2,250 MG in SODIUM CHLORIDE 0.9% 100 ML IV SCH (10:00)
[2017-05-10] MEDS ORDERED: metroNIDAZOLE INJ 500 MG in PREMIX 1 EACH IV SCH (10:00)
[2017-05-10 10:10] LABS: Albumin 2.2 G/DL (3.4-5.0); Bilirubin,Total 0.8 MG/DL (0.2-1.0); Calcium 7.8 MG/DL (8.5-10.1); Osmolality,Calculated 268.4 MOS/KG (273-304); Potassium 3.6 MMOL/L (3.5-5.1); Total Protein 6.5 G/DL (6.4-8.3)
[2017-05-10] MEDS: MORPHINE 2 MG/1 ML SYRINGE IV SCH ×7 (12:39→23:04)
[2017-05-10] MEDS ORDERED: metroNIDAZOLE 500 MG/100 ML PREMIX IV ONE (12:48)
[2017-05-10] MEDS: ENOXAPARIN 30 MG/0.3 ML SYRINGE SUBCUT SCH (12:55)
--- NOTE | 2017-05-10 14:29 | Nephrology Consult Note ---
History of Present Illness Chief complaint: Abdominal pain. History of present illness: Mr. 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 He had recent umbilical hernia repair by Dr Marisol GAR with mesh. Had onset of abd pain last night. Had not looked at his effluent to assess for cloudiness prior to the pain. It was cloudy once he did look this am. He denies cough, fever, chills. His PD fluid meets diagnostic criteria for peritonitis. He has been given IV zosyn and flagyl. CXR reviewed by me does not appear to be pneumonia. His exchanges have been reduced from 3 x nightly to once since the hernia repair surgery. Home Medications Medication Instructions Recorded Confirmed Type amLODIPine [Norvasc] 10 mg PO DAILY 05/14/15 05/10/17 History cloNIDine HCl [Clonidine HCl] 0.1 mg PO BID 05/14/15 05/10/17 History Calcitriol 0.5 mcg PO DAILY 04/17/17 05/10/17 History HYDROcodone/ACETAMIN 5-325 [[place] 1 tablet PO Q4H PRN tablet 04/19/17 05/10/17 Rx 5-325] Lisinopril [Prinivil] 20 mg PO DAILY #30 04/19/17 05/10/17 Rx Allergies Allergy/AdvReac Type Severity Reaction Status Date / Time No Known Allergies Allergy Verified 04/16/17 18:05 Medical,Surgical,& Family Hx - Medical History Cardio: History of: Cerebrovascular Disease, Hypertension No history of: CHF, CAD Psychological: No history of: Anxiety Disorders, ADHD, Behavior Problems, Bipolar Disorder, Depression, Previous Suicide Attempt, Psychiatric/Substance Abuse Tx, Schizophrenia, Violent Behavior, Psychiatric Problems Neurology: History of: Cerebrovascular Accident (2011) No history of: Seizures Endocrine: No history of: Diabetes Mellitus (IDDM), Diabetes Mellitus (NIDDM) Respiratory: No history of: Asthma, COPD Renal: History of: Dialysis, Renal Failure (dr barragan), Renal Problems Genitourinary: No history of: Bladder Problem, Prostate Problems, Genitourinary Cancer Gastrointestinal: No history of: Gastrointestinal Bleed, Hepatitis, Liver Problems, Pancreatitis Hematology: No history of: Anemia - Surgical History Thoracic Surgeries: Patient denies;: Organ Transplant Abdominal Surgeries: Surgical HX of: Appendectomy, Hernia Repair Orthopedic Surgeries: Surgical HX of;: Orthopedic Surgery (Left femur fracture 05/2015) - Family History Family History: Reports;: Family Cancer (mom, aunt, sister- breast CA; brother- colon CA; father-unknown CA), Family Hypertension (mother, sister, aunt) - Social History Smoking Status: Current every day smoker Frequency of Alcohol Use: None Type of Drug Use: None Exam - Vital Signs Vital signs: Period Temp Pulse Resp BP Sys/Schilling Pulse Ox Last 24 Hr 96.4 F-98.2 F 70-93 20-22 135-158/75-89 96-100 - General Appearance General appearance: well-developed, well-nourished EENT: ATNC, PERRL, mucous membranes moist, hearing intact, vision intact Neck: no JVD, no thyromegaly Respiratory: no kyphosis, course breath sounds (right base) Cardiology: no murmurs, no rub Gastrointestinal: hypoactive bowel sounds, tenderness Integumentary: no rash, warm and dry Neurologic: no focal deficit, no asterixis, alert and oriented x3 Musculoskeletal: no deformities, no erythema Psychiatric: mood/affect appropriate, cooperative Results - Labs CBC & BMP: 05/10/17 08:28 05/10/17 08:26 Assessment and Plan (1) Peritonitis due to infected peritoneal dialysis catheter Problem details: Stop zosyn and flagyl. Preferred empiric abx therapy for PD associated peritonitis is ancef and fortaz pending ID and sensitivities. one 6 hr dwell daily for total of 14d total therapy. Status: Acute Assessment and plan: Counseled patient regarding the strict adherance to sterile technique and avoidance of future peritonitis. Current Visit: Yes (2) End-stage renal disease on peritoneal dialysis Status: Acute Current Visit: Yes
[2017-05-10] MEDS: ceFAZolin 1,000 MG VIAL INTRAPERIT SCH ×2 (14:36→16:38)
[2017-05-10] MEDS: PANTOPRAZOLE 40 MG TABLET PO SCH (14:37)
[2017-05-10] MEDS ORDERED: PIPERACILLIN/TAZOBACTAM 3,375 MG in SODIUM CHLORIDE 0.9% 100 ML IV SCH (15:00)
[2017-05-10 18:27] LABS: Apearance,Urine CLEAR (Clear); Bilirubin,Urine Negative (Negative); Blood, Urine Negative (Negative); Glucose,Urine (UA) 50 mg/dL (Negative); Ketones,Urine Negative (Negative); Nitrite,Urine Negative (Negative); Protein,Urine 100 MG/DL; Urine Color Straw (Yellow); Urine Specific Gravity 1.004 (1.001-1.035); Urine Urobilinogen < 2.0 EU/DL (0.2-1.0); WBC,Urine <1 /HPF (0-6)
[2017-05-10] MEDS: SODIUM CHLORIDE 0.9% 1,000 ML IV SCH (18:44)
[2017-05-10] MEDS: MORPHINE 2 MG/1 ML SYRINGE IV PRN (21:21)
[2017-05-11] MEDS: MORPHINE 2 MG/1 ML SYRINGE IV SCH ×12 (02:25→23:04)
[2017-05-11 07:42] LABS: Basophils % 0.2 % (0.0-0.8); Hematocrit 30.3 VOL% (42.0-52.0); Hemoglobin 10.5 GM/DL (14.0-18.0); Immature Granulocytes % 0.2 %; Immature Granulocytes Absolute 0.01 #; Lymphocytes # 0.6 10*3/uL (1.4-4.0); Lymphocytes % 11.2 % (21.2-54.2); Mean Corpuscular HGB Conc 34.7 GM/DL (32-36); Mean Corpuscular Hemoglobin 24 PG (27-34); Mean Corpuscular Volume 70.3 FL (87-102); Mean Platelet Volume 9.4 FL (9.6-12.0); Monocytes # 0.4 10*3/uL (0.11-0.8); Monocytes % 7.8 % (1.7-12.7); Neutrophils # 4.3 10*3/uL (1.4-7.4); Neutrophils % 80.6 % (38.7-73.9); Platelet Count 134 T/CUMM (130-400); Red Blood Count 4.31 MC/CUMM (3.8-5.5); Red Cell Distribution Width 15.9 % (9.3-17.3); White Blood Count 5.4 T/CUMM (4-12)
[2017-05-11 08:11] LABS: Albumin 1.8 G/DL (3.4-5.0); Calcium 7.6 MG/DL (8.5-10.1); Phosphorous 2.8 MG/DL (2.5-4.9); Potassium 3.8 MMOL/L (3.5-5.1)
[2017-05-11 08:12] LABS: Burr Cells Slight; Giant Platelets Few; Hypochromasia 1+; Microcytosis Slight; Ovalocytes Slight; Platelet Estimate Normal
[2017-05-11 08:16] LABS: Calcium 7.6 MG/DL (8.5-10.1); Magnesium 1.9 MG/DL (1.8-2.4); Potassium 3.8 MMOL/L (3.5-5.1)
[2017-05-11] MEDS: PANTOPRAZOLE 40 MG TABLET PO SCH (08:44)
[2017-05-11] MEDS: MORPHINE 2 MG/1 ML SYRINGE IV PRN ×2 (08:44→23:01)
--- NOTE | 2017-05-11 08:52 | Hospitalist Progress Note ---
Assessment and Plan (1) Peritonitis due to infected peritoneal dialysis catheter Problem details: Stop zosyn and flagyl. Preferred empiric abx therapy for PD associated peritonitis is ancef and fortaz pending ID and sensitivities. one 6 hr dwell daily for total of 14d total therapy. Status: Acute Assessment and plan: He is presently being treated with intravenous cefazolin and and ceftazidime. He will be seen in consultation today by infectious diseases. Current Visit: Yes (2) End-stage renal disease on peritoneal dialysis Status: Acute Assessment and plan: He continues to undergo peritoneal dialysis under the management of nephrology. Current Visit: Yes (3) Essential hypertension Status: Acute Assessment and plan: His blood pressure today is 138/76. He will continue on his same home medications. Current Visit: Yes Hospitalist: Subjective Interval history: Patient spent an uneventful night. He has no complaints today. He was seen yesterday in consultation by nephrology who changed his antibiotics to cefazolin and ceftazidime. He continues on peritoneal dialysis. He will be seen today in consultation by infectious diseases. Exam - Constitutional Vitals: Period Temp Pulse Resp BP Sys/Schilling Pulse Ox Last 24 Hr 96.4 F-99.5 F 70-91 16-20 135-158/75-89 96-100 General appearance: no acute distress - Head Head exam: Present: normal inspection - Neck Neck exam: Present: normal inspection - Respiratory Respiratory exam: Present: clear to auscultation bilaterally - Cardiovascular Cardiovascular exam: Present: regular rate and rhythm - GI/Abdominal GI/Abdominal exam: Present: normal bowel sounds, soft, other (Nontender with no palpable masses or hepatosplenomegaly.) - Extremities Exam Extremities exam: Present: normal inspection - Skin Skin exam: Present: normal color, warm, intact Results - Labs CBC & BMP: 05/11/17 06:22 05/11/17 06:22
--- NOTE | 2017-05-11 09:03 | Nephrology Progress Note ---
Nephrology - PN: Subj Interval history: Pt states abd pain somewhat better today. PD culture pending. Creatinine essentially unchanged after one exchange yesterday with 6 hr dwell with intraperitoneal ancef and ceftazidime. Exam (PN)-Nephrology - Vital Signs Vital signs: Period Temp Pulse Resp BP Sys/Schilling Pulse Ox Last 24 Hr 96.4 F-99.5 F 70-91 16-20 135-158/75-89 96-100 - General Appearance General appearance: well-developed, well-nourished EENT: ATNC, PERRL Neck: no JVD, no thyromegaly Respiratory: no kyphosis, no scoliosis Cardiology: no murmurs, no rub, no edema Gastrointestinal: normoactive bowel sounds, tenderness Integumentary: no rash, warm and dry Neurologic: no focal deficit, no asterixis, alert and oriented x3 Musculoskeletal: no deformities, no erythema Psychiatric: mood/affect appropriate, cooperative - Lab 05/11/17 06:22 05/11/17 06:22 Most recent lab results Calcium 7.6 MG/DL (8.5-10.1) L 05/11/17 06:22 Phosphorus 2.8 MG/DL (2.5-4.9) 05/11/17 06:22 Magnesium 1.9 MG/DL (1.8-2.4) 05/11/17 06:22 Assessment and Plan (1) Peritonitis due to infected peritoneal dialysis catheter Problem details: Continue intraperitoneal ancef and fortaz pending ID and sensitivities. one 6 hr dwell daily for total of 14d total therapy. Increase to two exchanges daily. Only one with abx. Status: Acute Assessment and plan: Counseled patient regarding the strict adherance to sterile technique and avoidance of future peritonitis. Current Visit: Yes (2) End-stage renal disease on peritoneal dialysis Status: Acute Current Visit: Yes
[2017-05-11] MEDS: ceFAZolin 1,000 MG VIAL INTRAPERIT SCH ×2 (09:51→22:27)
[2017-05-11] MEDS: ENOXAPARIN 30 MG/0.3 ML SYRINGE SUBCUT SCH (10:07)
--- NOTE | 2017-05-11 13:14 | Infectious Disease Consult ---
Assessment and Plan (1) End-stage renal disease on peritoneal dialysis Status: Acute Current Visit: Yes (2) Essential hypertension Status: Acute Current Visit: Yes (3) Peritonitis due to infected peritoneal dialysis catheter Problem details: Continue intraperitoneal ancef and fortaz pending ID and sensitivities. one 6 hr dwell daily for total of 14d total therapy. Increase to two exchanges daily. Only one with abx. Status: Acute Assessment and plan: Agree with intraperitoneal antibiotic therapy, however for at least a few days a negative intravenous antibiotics as well. He has gram-negative rods growing in the PD fluid, so far blood cultures negative. I am going to give him IV ceftazidime and we will follow-up finalized cultures and adjust accordingly. Depending on the organism we may need to remove the PD catheter. Thank you very much for the consult. Will follow. Current Visit: Yes History of Present Illness Chief complaint: Peritonitis History of present illness: Mr. Pino is a 57 year old male on peritoneal dialysis since early this year came into hospital because of worsening abdominal pain for about 1 day prior to admission. He denied any fever but he was anorexic with nausea and retching but he did not vomit. No diarrhea. He came to hospital because of severe pain and also the fact that he noticed the PD fluid was more cloudy. I am asked to assist with management. This is the first time he is having a peritonitis since he started peritoneal dialysis about 5 months ago. Home Medications Medication Instructions Recorded Confirmed Type amLODIPine [Norvasc] 10 mg PO DAILY 05/14/15 05/11/17 History cloNIDine HCl [Clonidine HCl] 0.1 mg PO BID 05/14/15 05/11/17 History Calcitriol 0.5 mcg PO DAILY 04/17/17 05/11/17 History HYDROcodone/ACETAMIN 5-325 [[place] 1 tablet PO Q4H PRN tablet 04/19/17 05/10/17 Rx 5-325] Lisinopril [Prinivil] 20 mg PO DAILY #30 04/19/17 05/11/17 Rx Allergies Allergy/AdvReac Type Severity Reaction Status Date / Time No Known Allergies Allergy Verified 04/16/17 18:05 12 point system: reviewed and no additional remarkable complaints except as stated (Per HPI) Medical,Surgical,& Family Hx - Medical History Cardio: History of: Cerebrovascular Disease, Hypertension No history of: CHF, CAD Psychological: No history of: Anxiety Disorders, ADHD, Behavior Problems, Bipolar Disorder, Depression, Previous Suicide Attempt, Psychiatric/Substance Abuse Tx, Schizophrenia, Violent Behavior, Psychiatric Problems Neurology: History of: Cerebrovascular Accident (2011) No history of: Seizures Endocrine: No history of: Diabetes Mellitus (IDDM), Diabetes Mellitus (NIDDM) Respiratory: No history of: Asthma, COPD Renal: History of: Dialysis, Renal Failure (dr barragan), Renal Problems Genitourinary: No history of: Bladder Problem, Prostate Problems, Genitourinary Cancer Gastrointestinal: No history of: Gastrointestinal Bleed, Hepatitis, Liver Problems, Pancreatitis Hematology: No history of: Anemia - Surgical History Thoracic Surgeries: Patient denies;: Organ Transplant Abdominal Surgeries: Surgical HX of: Appendectomy, Hernia Repair Orthopedic Surgeries: Surgical HX of;: Orthopedic Surgery (Left femur fracture 05/2015) - Family History Family History: Reports;: Family Cancer (mom, aunt, sister- breast CA; brother- colon CA; father-unknown CA), Family Hypertension (mother, sister, aunt) - Social History Smoking Status: Current every day smoker Frequency of Alcohol Use: None Type of Drug Use: None Infectious Disease Exam H&P - Constitutional Vitals: Vital Signs Temp Pulse Resp BP Pulse Ox 99.0 F 95 H 18 159/83 95 05/11/17 11:50 05/11/17 11:50 05/11/17 11:50 05/11/17 11:50 05/11/17 11:50 Intake and Output 05/10/17 05/11/17 05/11/17 23:59 07:59 15:59 Intake Total 200 / 200 100 / 100 Output Total 200 / 200 200 / 200 Balance 0 / 0 -100 / -100 Intake: Oral 200 / 200 100 / 100 Output: Urine 200 / 200 200 / 200 Other: Voiding Method Urinal # Voids 1 Peritoneal Dialysate 2,000 Infused Amount Peritoneal Return Fluid 0.4 2.4 Weight Weight 62.777 kg Patient Weight 05/11/17 23:59 Weight 62.777 kg Exam: General: Patient somewhat uncomfortable from abdominal pain HEENT: Mucous membranes pink and moist, anicteric acyanotic, IZABELLA, no oral exudates Neck: Supple, no thyroid gland enlargement Respiratory system: Breath sounds vesicular, no crepitations or wheezes Cardiovascular: Normal S1 and S2, no murmurs appreciated Abdomen: Normal bowel sounds, soft, moderate generalized abdominal tenderness with guarding, unable to appreciate organomegaly or mass due to the pain Genitourinary: No suprapubic pain or bladder distention, clear urine noted in urinal Extremities: no edema Skin: No rash Reports - Labs CBC & BMP: 05/11/17 06:22 05/11/17 06:22 Labs: Laboratory Results - last 24 hr 05/10/17 05/11/17 05/11/17 12:54 06:22 06:22 WBC 5.4 RBC 4.31 Hgb 10.5 L Hct 30.3 L MCV 70.3 L MCH 24 L MCHC 34.7 RDW 15.9 Plt Count 134 MPV 9.4 L Neut % (Auto) 80.6 H Lymph % (Auto) 11.2 L [place] % (Auto) 7.8 Eos % (Auto) 0.0 Baso % (Auto) 0.2 Neut # (Auto) 4.3 Lymph # (Auto) 0.6 L [place] # (Auto) 0.4 Eos # (Auto) 0.0 Baso # (Auto) 0.0 Immature Gran % 0.2 Nucleated RBC % 0.0 Immature Gran # 0.01 Nucleated RBCs # 0.00 Platelet Estimate Normal Giant Platelets Few Immature Plt Fraction 0.5 Hypochromasia 1+ Microcytosis Slight Ovalocytes Slight [place] Cells Slight Sodium 136 Potassium 3.8 Chloride 103 Carbon Dioxide 24 Anion Gap 12.8 BUN 23 H Creatinine 5.90 H GFR Calculation 12 BUN/Creatinine Ratio 3.00 L Glucose 79 Calculated Osmolality 274.0 Calcium 7.6 L Phosphorus 2.8 Magnesium Albumin 1.8 L Urine Color Straw Urine Appearance Clear Urine pH 8.0 Ur Specific [place] 1.004 Urine Protein 100 Urine Glucose (UA) 50 Urine Ketones Negative Urine Blood Negative Urine Nitrate Negative Urine Bilirubin Negative Urine Urobilinogen < 2.0 H Urine Leukocytes Negative Urine WBC <1 Ur Culture Indicated? Not indicated 05/11/17 06:22 WBC RBC Hgb Hct MCV MCH MCHC RDW Plt Count MPV Neut % (Auto) Lymph % (Auto) [place] % (Auto) Eos % (Auto) Baso % (Auto) Neut # (Auto) Lymph # (Auto) [place] # (Auto) Eos # (Auto) Baso # (Auto) Immature Gran % Nucleated RBC % Immature Gran # Nucleated RBCs # Platelet Estimate Giant Platelets Immature Plt Fraction Hypochromasia Microcytosis Ovalocytes [place] Cells Sodium 136 Potassium 3.8 Chloride 103 Carbon Dioxide 23 Anion Gap 13.8 BUN 24 H Creatinine 5.90 H GFR Calculation 12 BUN/Creatinine Ratio 4.00 L Glucose 77 Calculated Osmolality 274.0 Calcium 7.6 L Phosphorus Magnesium 1.9 Albumin Urine Color Urine Appearance Urine pH Ur Specific [place] Urine Protein Urine Glucose (UA) Urine Ketones Urine Blood Urine Nitrate Urine Bilirubin Urine Urobilinogen Urine Leukocytes Urine WBC Ur Culture Indicated? - Reports Microbiology: Microbiology 05/10/17 12:51 Blood Culture - Preliminary Blood No growth at 1 day 05/10/17 12:51 Blood Culture - Preliminary Blood No growth at 1 day 05/10/17 08:28 Body Fluid Culture - Preliminary Peritoneal Fluid - Peritoneal Gram Negative Rods Gram Stain - Final No organisms seen - Diagnostic Findings Procedure: Chest x-ray: report reviewed by me, image reviewed by me
[2017-05-11] MEDS: SODIUM CHLORIDE 0.9% 1,000 ML IV SCH (14:36)
[2017-05-11] MEDS: CEFEPIME 500 MG in SODIUM CHLORIDE 0.9% 50 ML IV SCH (15:26)
[2017-05-12] MEDS: MORPHINE 2 MG/1 ML SYRINGE IV SCH ×11 (01:21→23:01)
[2017-05-12 05:34] LABS: Basophils % 0.2 % (0.0-0.8); Hematocrit 30.9 VOL% (42.0-52.0); Hemoglobin 10.7 GM/DL (14.0-18.0); Immature Granulocytes % 0.4 %; Immature Granulocytes Absolute 0.02 #; Lymphocytes # 0.7 10*3/uL (1.4-4.0); Lymphocytes % 15.4 % (21.2-54.2); Mean Corpuscular HGB Conc 34.6 GM/DL (32-36); Mean Corpuscular Hemoglobin 24 PG (27-34); Mean Corpuscular Volume 70.1 FL (87-102); Mean Platelet Volume 8.1 FL (9.6-12.0); Monocytes # 0.4 10*3/uL (0.11-0.8); Neutrophils # 3.5 10*3/uL (1.4-7.4); Platelet Count 129 T/CUMM (130-400); Red Blood Count 4.41 MC/CUMM (3.8-5.5); Red Cell Distribution Width 15.9 % (9.3-17.3); White Blood Count 4.7 T/CUMM (4-12)
[2017-05-12 06:00] LABS: Calcium 7.7 MG/DL (8.5-10.1); Potassium 3.5 MMOL/L (3.5-5.1)
--- NOTE | 2017-05-12 09:01 | Hospitalist Progress Note ---
Assessment and Plan (1) Peritonitis due to infected peritoneal dialysis catheter Problem details: Continue intraperitoneal ancef and fortaz pending ID and sensitivities. one 6 hr dwell daily for total of 14d total therapy. Increase to two exchanges daily. Only one with abx. Status: Acute Assessment and plan: He is presently being treated with intravenous ceftazidime. Preliminary peritoneal fluid cultures demonstrated gram-negative rods. He is being followed by Dr. Sunshine of infectious diseases. I will defer to her for recommendations about antibiotics. Current Visit: Yes (2) End-stage renal disease on peritoneal dialysis Status: Acute Assessment and plan: He continues to undergo peritoneal dialysis under the management of nephrology. Current Visit: Yes (3) Essential hypertension Status: Acute Assessment and plan: His blood pressure today is 153/90. He continues on his present antihypertensive medications. Current Visit: Yes Hospitalist: Subjective Interval history: Patient is doing well with no new complaints. He spent an uneventful evening. He has been seen in consultation by Dr. Michele Griffin of infectious diseases. Presently being treated with intravenous ceftazidime. Preliminary cultures of the peritoneal fluid of demonstrated gram-negative rods. Exam - Constitutional Vitals: Period Temp Pulse Resp BP Sys/Schilling Pulse Ox Last 24 Hr 98.5 F-101.6 F 95-124 16-20 153-190/83-96 95-98 General appearance: no acute distress - Head Head exam: Present: normal inspection - Neck Neck exam: Present: normal inspection - Respiratory Respiratory exam: Present: clear to auscultation bilaterally - Cardiovascular Cardiovascular exam: Present: regular rate and rhythm - GI/Abdominal GI/Abdominal exam: Present: normal bowel sounds, soft, other (Nontender with no palpable masses or hepatosplenomegaly.) - Extremities Exam Extremities exam: Present: normal inspection - Skin Skin exam: Present: normal color, warm, intact Results - Labs CBC & BMP: 05/12/17 05:19 05/12/17 05:19
[2017-05-12] MEDS: SODIUM CHLORIDE 0.9% 1,000 ML IV SCH (09:10)
[2017-05-12] MEDS: PANTOPRAZOLE 40 MG TABLET PO SCH (09:10)
[2017-05-12] MEDS: ENOXAPARIN 30 MG/0.3 ML SYRINGE SUBCUT SCH (09:10)
--- NOTE | 2017-05-12 10:19 | Nephrology Progress Note ---
Nephrology - PN: Subj Interval history: Pt appears comfortable. Pain improved. Tolerating 2L fill volumes without complications s/p umbilical hernia repair with mesh. Effluent cx growing GNRs, ID and sensitivities pending. ID [employer] sales consultant added IV fortaz, probably not necessary as the inflammed peritoneum enhances systemic absorption dramatically. Exam (PN)-Nephrology - Vital Signs Vital signs: Period Temp Pulse Resp BP Sys/Schilling Pulse Ox Last 24 Hr 98.5 F-101.6 F 95-124 16-20 153-190/83-96 95-98 - General Appearance General appearance: well-developed, well-nourished EENT: ATNC, PERRL, hearing intact, vision intact Neck: no thyromegaly Respiratory: no kyphosis, clear Cardiology: no murmurs, no rub, no edema Gastrointestinal: normoactive bowel sounds, no tenderness Integumentary: no rash, warm and dry Neurologic: no focal deficit, no asterixis, alert and oriented x3 Musculoskeletal: no deformities, no erythema Psychiatric: mood/affect appropriate, cooperative - Lab 05/12/17 05:19 05/12/17 05:19 Most recent lab results Calcium 7.7 MG/DL (8.5-10.1) L 05/12/17 05:19 Phosphorus 2.8 MG/DL (2.5-4.9) 05/11/17 06:22 Magnesium 1.9 MG/DL (1.8-2.4) 05/11/17 06:22 Assessment and Plan (1) Peritonitis due to infected peritoneal dialysis catheter Problem details: Continue intraperitoneal ancef and fortaz pending ID and sensitivities. one 6 hr dwell daily for total of 14d total therapy. Increase to four exchanges daily. Only one with abx. Status: Acute Assessment and plan: Counseled patient regarding the strict adherance to sterile technique and avoidance of future peritonitis. Should be stable for d/c once ID and sensitivities return to tailor antibiotic therapy. Total 14d therapy. F/u PD clinic after discharge. Current Visit: Yes (2) End-stage renal disease on peritoneal dialysis Status: Acute Current Visit: Yes
[2017-05-12] MEDS: CALCITRIOL 0.5 MCG CAPSULE PO SCH (16:51)
[2017-05-12] MEDS: LISINOPRIL 20 MG TABLET PO SCH (16:51)
[2017-05-12] MEDS: amLODIPine 10 MG TABLET PO SCH (16:51)
[2017-05-12] MEDS: CEFEPIME 500 MG in SODIUM CHLORIDE 0.9% 50 ML IV SCH (17:02)
--- NOTE | 2017-05-12 17:25 | Infectious Disease Progress ---
Assessment and Plan (1) End-stage renal disease on peritoneal dialysis Status: Acute Current Visit: Yes (2) Essential hypertension Status: Acute Current Visit: Yes (3) Peritonitis due to infected peritoneal dialysis catheter Problem details: Continue intraperitoneal ancef and fortaz pending ID and sensitivities. one 6 hr dwell daily for total of 14d total therapy. Increase to four exchanges daily. Only one with abx. 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 Blood cultures NGTD. Recommendations: I am going to stop cefepime and put him on oral ciprofloxacin, renally dosed at 500 mg daily. He will continue with intraperitoneal antibiotics for now. However, since this organism is an Enterobacteriaceae which tend to cling to medical devices, removal of his PD catheter is highly recommended to avoid relapse of the infection in the future. Current Visit: Yes Infectious Disease - PN: Subj Interval history: Patient admits to some improvement in abdominal pain today. He did spike fever to over 101 yesterday evening but none since then. He has been on liquid diet and is asking for normal food today. No other complaints. Infectious Disease Exam (PN) - Constitutional Vitals: Temp Pulse Resp BP Pulse Ox 98.5 F 91 H 18 162/95 91 L 05/12/17 11:43 05/12/17 11:43 05/12/17 11:43 05/12/17 11:43 05/12/17 11:43 General appearance: no acute distress Exam: General appearance: no acute distress - Eye Eye exam: Present: EOMI. no icterus Pupils: Present: IZABELLA - ENT ENT exam: no oral exudates - Respiratory Respiratory exam: vesicular BS, no crepitations or wheezes - Cardiovascular Cardiovascular exam: regular rate and rhythm, no murmurs - GI/Abdominal GI/Abdominal exam: normal bowel sounds, soft, so with generalized tenderness but notably better than yesterday - Extremities Exam Extremities exam: no edema - Skin Skin exam: no rash Results - Labs CBC & BMP: 05/12/17 05:19 05/12/17 05:19 Lab Results: I have reviewed the past 24 hour labs
[2017-05-12] MEDS: cloNIDine 0.1 MG TABLET PO SCH (21:26)
[2017-05-12] MEDS: ceFAZolin 1,000 MG VIAL INTRAPERIT SCH (21:26)
[2017-05-12] MEDS: MORPHINE 2 MG/1 ML SYRINGE IV PRN (21:32)
[2017-05-13] MEDS: MORPHINE 2 MG/1 ML SYRINGE IV SCH ×5 (01:14→16:08)
[2017-05-13] MEDS: MORPHINE 2 MG/1 ML SYRINGE IV PRN (05:53)
[2017-05-13] MEDS: ENOXAPARIN 30 MG/0.3 ML SYRINGE SUBCUT SCH (09:05)
[2017-05-13] MEDS: amLODIPine 10 MG TABLET PO SCH (09:05)
[2017-05-13] MEDS: LISINOPRIL 20 MG TABLET PO SCH (09:05)
[2017-05-13] MEDS: CIPROFLOXACIN 500 MG TABLET PO SCH (09:05)
[2017-05-13] MEDS: PANTOPRAZOLE 40 MG TABLET PO SCH (09:05)
[2017-05-13] MEDS: cloNIDine 0.1 MG TABLET PO SCH ×2 (09:05→20:48)
[2017-05-13] MEDS: CALCITRIOL 0.5 MCG CAPSULE PO SCH (09:05)
--- NOTE | 2017-05-13 09:31 | Hospitalist Progress Note ---
Assessment and Plan (1) Peritonitis due to infected peritoneal dialysis catheter Problem details: Continue intraperitoneal ancef and fortaz pending ID and sensitivities. one 6 hr dwell daily for total of 14d total therapy. Increase to four exchanges daily. Only one with abx. Status: Acute Assessment and plan: He is presently being treated with peritoneal ceftezole and and ceftazidime and oral ciprofloxacin. He is to undergo removal of the peritoneal catheter, continuation of his antibiotics, and replacement of the peritoneal catheter in 2 weeks. Current Visit: Yes (2) End-stage renal disease on peritoneal dialysis Status: Acute Assessment and plan: As noted above he will undergo removal of the peritoneal catheter. I presume that nephrology will want placement of a temporary catheter in order to perform hemodialysis during the 2 weeks while he has no peritoneal catheter. Current Visit: Yes (3) Essential hypertension Status: Acute Assessment and plan: His blood pressure today is 159/85. He continues on his present antihypertensive medications. Current Visit: Yes Hospitalist: Subjective Interval history: Patient feels well today with no complaints. He continues on intraperitoneal cefazolin and ceftazidime and oral ciprofloxacin. As per the recommendations of infectious disease, he is to undergo removal of the peritoneal dialysis catheter. Exam - Constitutional Vitals: Period Temp Pulse Resp BP Sys/Schilling Pulse Ox Last 24 Hr 98.5 F-98.8 F 91-101 18-20 159-187/85-96 91-96 General appearance: no acute distress - Head Head exam: Present: normal inspection - Neck Neck exam: Present: normal inspection - Respiratory Respiratory exam: Present: clear to auscultation bilaterally - Cardiovascular Cardiovascular exam: Present: regular rate and rhythm - GI/Abdominal GI/Abdominal exam: Present: normal bowel sounds, soft, other (Nontender with no palpable masses or hepatosplenomegaly.) - Extremities Exam Extremities exam: Present: normal inspection - Skin Skin exam: Present: normal color, warm, intact Results - Labs CBC & BMP: 05/12/17 05:19 05/12/17 05:19
--- NOTE | 2017-05-13 11:20 | General Surgery Consult Note ---
Assessment and Plan (1) Peritonitis due to infected peritoneal dialysis catheter Problem details: Continue intraperitoneal ancef and fortaz pending ID and sensitivities. one 6 hr dwell daily for total of 14d total therapy. Increase to four exchanges daily. Only one with abx. Status: Acute Assessment and plan: Patient with peritonitis with current peritoneal dialysis catheter. Recommendations for removal-made. We will remove the peritoneal dialysis catheter and place a hemodialysis catheter pending nephrology is in agreement with the plan of care. We reviewed the risks of persistent infection, septicemia, injury to adjacent organs, pneumothorax, wound healing complications , and the need for additional procedures. Patient expresses understanding of these risks and agrees to proceed. Patient is hopeful to resume peritoneal dialysis upon clearance of the infection. Current Visit: Yes (2) End-stage renal disease on peritoneal dialysis Status: Acute Current Visit: Yes History of Present Illness Chief complaint: peritonitis History of present illness: Mr. Pino is a 57 year old male with CVA and end-stage renal disease on peritoneal dialysis currently admitted receiving treatment for peritonitis. This peritoneal dialysis catheter was placed by Dr. Cox at [facility] in September 2016 with no prior complications. For better chance of clearing the infection, has been recommended the catheter be removed and, the patient will require hemodialysis access in the interim to continue his dialysis. He denies any history of neck or chest trauma or previous central venous access. He denies any cardiac or pulmonary history. The patient reports his abdominal pain is significantly improved mellitus persistent since admission. He has been afebrile since 05/11/2017. Antibiotics per infectious disease Dr. Bautista. Home Medications Medication Instructions Recorded Confirmed Type amLODIPine [Norvasc] 10 mg PO DAILY 05/14/15 05/11/17 History cloNIDine HCl [Clonidine HCl] 0.1 mg PO BID 05/14/15 05/11/17 History Calcitriol 0.5 mcg PO DAILY 04/17/17 05/11/17 History HYDROcodone/ACETAMIN 5-325 [[place] 1 tablet PO Q4H PRN tablet 04/19/17 05/10/17 Rx 5-325] Lisinopril [Prinivil] 20 mg PO DAILY #30 04/19/17 05/11/17 Rx Allergies Allergy/AdvReac Type Severity Reaction Status Date / Time No Known Allergies Allergy Verified 04/16/17 18:05 Medical,Surgical,& Family Hx - Medical History Cardio: History of: Cerebrovascular Disease, Hypertension No history of: CHF, CAD Psychological: No history of: Anxiety Disorders, ADHD, Behavior Problems, Bipolar Disorder, Depression, Previous Suicide Attempt, Psychiatric/Substance Abuse Tx, Schizophrenia, Violent Behavior, Psychiatric Problems Neurology: History of: Cerebrovascular Accident (2011) No history of: Seizures Endocrine: No history of: Diabetes Mellitus (IDDM), Diabetes Mellitus (NIDDM) Respiratory: No history of: Asthma, COPD Renal: History of: Dialysis, Renal Failure (dr barragan), Renal Problems Genitourinary: No history of: Bladder Problem, Prostate Problems, Genitourinary Cancer Gastrointestinal: No history of: Gastrointestinal Bleed, Hepatitis, Liver Problems, Pancreatitis Hematology: No history of: Anemia - Surgical History Thoracic Surgeries: Patient denies;: Organ Transplant Abdominal Surgeries: Surgical HX of: Appendectomy, Hernia Repair Orthopedic Surgeries: Surgical HX of;: Orthopedic Surgery (Left femur fracture 05/2015) Additional Surgical History: Peritoneal dialysis catheter placed - Family History Family History: Reports;: Family Cancer (mom, aunt, sister- breast CA; brother- colon CA; father-unknown CA), Family Hypertension (mother, sister, aunt) - Social History Smoking Status: Current every day smoker Frequency of Alcohol Use: None Type of Drug Use: None - Constitutional Constitutional: Absent: chills, fever(s) - Cardiovascular Cardiovascular: Absent: chest pain at rest, orthopnea - Respiratory Respiratory: Absent: cough, wheezing - Gastrointestinal Gastrointestinal: Present: as per HPI. Absent: diarrhea, hematemesis, hematochezia, nausea, vomiting - Genitourinary Genitourinary: Absent: flank pain Exam - Constitutional Vitals: Period Temp Pulse Resp BP Sys/Schilling Pulse Ox Last 24 Hr 98.5 F-98.8 F 91-104 18-20 147-187/85-96 91-97 General appearance: no acute distress - Head Head exam: Present: normocephalic - Eye Eye exam: Absent: scleral icterus - Respiratory Respiratory exam: Present: clear to auscultation bilaterally - Cardiovascular Cardiovascular exam: Present: RRR - GI/Abdominal GI/Abdominal exam: Present: tenderness (diffuse), soft. Absent: distended, firm - Extremities Exam Extremities exam: Absent: calf tenderness, edema - Neurological Exam Neurological exam: Present: alert, oriented X3 Speech: Present: normal - Skin Skin exam: Present: normal color Results - Labs CBC & BMP: 05/12/17 05:19 05/12/17 05:19 Lab Results: I have reviewed the past 24 hour labs Labs: Blood cultures: No growth at 1 day Peritoneal fluid cultures: pantoea (E) agglomerans group
--- NOTE | 2017-05-13 11:31 | Infectious Disease Progress ---
Assessment and Plan (1) End-stage renal disease on peritoneal dialysis Status: Acute Current Visit: Yes (2) Essential hypertension Status: Acute Current Visit: Yes (3) Peritonitis due to infected peritoneal dialysis catheter Problem details: Continue intraperitoneal ancef and fortaz pending ID and sensitivities. one 6 hr dwell daily for total of 14d total therapy. Increase to four exchanges daily. Only one with abx. 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 Blood cultures NGTD. Recommendations: Continue ciprofloxacin, renally dosed at 500 mg daily. Catheter removal pending for today. Current Visit: Yes Infectious Disease - PN: Subj Interval history: Patient reports further reduction in abdominal pain. He has not had any more fever. Tolerating oral ciprofloxacin without nausea vomiting or diarrhea. Infectious Disease Exam (PN) - Constitutional Vitals: Temp Pulse Resp BP Pulse Ox 98.6 F 104 H 18 147/89 97 05/13/17 11:05 05/13/17 11:05 05/13/17 11:05 05/13/17 11:05 05/13/17 11:05 General appearance: no acute distress Exam: General appearance: no acute distress - Eye Eye exam: Present: EOMI. no icterus Pupils: Present: IZABELLA - ENT ENT exam: no oral exudates - Respiratory Respiratory exam: vesicular BS, no crepitations or wheezes - Cardiovascular Cardiovascular exam: regular rate and rhythm, no murmurs - GI/Abdominal GI/Abdominal exam: normal bowel sounds, soft, decreased tenderness which is not located mainly to the right of the umbilicus - Extremities Exam Extremities exam: no edema - Skin Skin exam: no rash Results - Labs CBC & BMP: 05/12/17 05:19 05/12/17 05:19 Lab Results: I have reviewed the past 24 hour labs
--- NOTE | 2017-05-13 14:32 | Nephrology Progress Note ---
Nephrology - PN: Subj Interval history: Mr Pino states his abd pain is unchanged from yesterday. PD fluid cx returned sensitive to both Ancef and Fortaz. Cipro started by ID solar consultant. Appreciate her expertise and assistance. Recommended PD catheter removal due to biofilm nature of this organism. Surgery consulted and have already evaluated. Appreciate Dr Aquino's assistance. Plan for PD catheter removal tomorrow since he has not been NPO with concurrent placement of tunneled HD catheter. Pt denies SOB. Appears comfortable. Exam (PN)-Nephrology - Vital Signs Vital signs: Period Temp Pulse Resp BP Sys/Schilling Pulse Ox Last 24 Hr 98.5 F-98.8 F 92-104 18-20 147-187/85-96 94-97 - General Appearance General appearance: well-developed, chronically ill EENT: ATNC, PERRL, mucous membranes moist, hearing intact, vision intact Neck: no JVD, no carotid bruit Respiratory: no kyphosis, clear Cardiology: no murmurs, no rub, no edema Gastrointestinal: normoactive bowel sounds, tenderness Integumentary: no rash, warm and dry Neurologic: no focal deficit, no asterixis, alert and oriented x3 Musculoskeletal: no deformities, no erythema Psychiatric: mood/affect appropriate, cooperative - Lab 05/12/17 05:19 05/12/17 05:19 Most recent lab results Calcium 7.7 MG/DL (8.5-10.1) L 05/12/17 05:19 Phosphorus 2.8 MG/DL (2.5-4.9) 05/11/17 06:22 Magnesium 1.9 MG/DL (1.8-2.4) 05/11/17 06:22 Assessment and Plan (1) Peritonitis due to infected peritoneal dialysis catheter Problem details: Continue intraperitoneal ancef and fortaz pending ID and sensitivities. one 6 hr dwell daily until removal. Status: Acute Assessment and plan: Plan 2 hrs hemodialysis tomorrow after catheter placed. Euvolemic, heparin free. 3 hrs Tuesday. 4 hrs Tuesday. Social work service to arrange outpt HD chair. Continue IV antibiotics per ID solar consultant. Current Visit: Yes (2) End-stage renal disease on peritoneal dialysis Status: Acute Current Visit: Yes
[2017-05-13] MEDS: SODIUM CHLORIDE 0.9% 1,000 ML IV SCH ×2 (16:06→20:47)
[2017-05-13] MEDS: ceFAZolin 1,000 MG VIAL INTRAPERIT SCH (20:48)
[2017-05-14 04:26] LABS: Basophils % 0.2 % (0.0-0.8); Eosinophils # 0.2 10*3/uL (0.0-0.87); Eosinophils % 4.4 % (0.00-10.9); Hematocrit 29.9 VOL% (42.0-52.0); Hemoglobin 10.1 GM/DL (14.0-18.0); Immature Granulocytes % 0.6 %; Immature Granulocytes Absolute 0.03 #; Lymphocytes # 1.1 10*3/uL (1.4-4.0); Lymphocytes % 19.9 % (21.2-54.2); Mean Corpuscular HGB Conc 33.8 GM/DL (32-36); Mean Corpuscular Hemoglobin 24 PG (27-34); Mean Corpuscular Volume 71.2 FL (87-102); Mean Platelet Volume 8.7 FL (9.6-12.0); Monocytes # 0.5 10*3/uL (0.11-0.8); Neutrophils # 3.6 10*3/uL (1.4-7.4); Neutrophils % 65.9 % (38.7-73.9); Platelet Count 144 T/CUMM (130-400); Red Cell Distribution Width 15.8 % (9.3-17.3); White Blood Count 5.4 T/CUMM (4-12)
[2017-05-14 04:56] LABS: Calcium 7.5 MG/DL (8.5-10.1); Osmolality,Calculated 273.8 MOS/KG (273-304); Potassium 3.2 MMOL/L (3.5-5.1)
[2017-05-14] MEDS ORDERED: TISSUE ADHESIVE 1 EACH APPLICATOR TOP ONE (06:28)
[2017-05-14] MEDS ORDERED: LIDOCAINE 1%/EPI INJ 20 ML VIAL ONE (06:28)
[2017-05-14] MEDS ORDERED: BUPIVACAINE 0.25% 50 ML VIAL ONE (06:29)
[2017-05-14] MEDS ORDERED: HEPARIN 5,000 UNIT/1 ML VIAL ONE (06:29)
[2017-05-14] MEDS: amLODIPine 10 MG TABLET PO SCH ×2 (07:08→09:10)
[2017-05-14] MEDS: cloNIDine 0.1 MG TABLET PO SCH ×3 (07:09→20:05)
[2017-05-14] MEDS: PANTOPRAZOLE 40 MG TABLET PO SCH ×2 (07:25→09:10)
[2017-05-14] MEDS ORDERED: PROPOFOL 200 MG/20 ML VIAL IV ONE (07:31)
[2017-05-14] MEDS ORDERED: PHENYLEPHRINE 1 MG/10 ML SYRINGE IV ONE (07:31)
[2017-05-14] MEDS ORDERED: LIDOCAINE 2% 5 ML VIAL ONE (07:31)
[2017-05-14] MEDS: SODIUM CHLORIDE 0.9% 1,000 ML IV SCH (07:31)
--- NOTE | 2017-05-14 08:50 | Operative Note ---
Date of procedure: 05/14/17 Pre-op diagnosis: Renal failure with infected peritoneal dialysis cath Post-op diagnosis: same Procedure: Preoperative diagnosis Renal failure with need for hemodialysis access and infected peritoneal dialysis catheter Postoperative diagnosis Same Procedures performed 1. Right internal jugular vein tunneled hemodialysis catheter placement 2. Ultrasound guidance and interpretation of images 3. Fluoroscopic guidance and interpretation of images 4. Removal of peritoneal dialysis catheter Findings The right internal jugular vein is compressible and it was accessed for hemodialysis access. The tip of the catheter was place in the right atrium. Patient tolerated procedure well and both ports worked well. The peritoneal dialysis catheter was removed and the tip was sent for culture. Complications none apparent Specimen Peritoneal dialysis catheter tip for culture Indications Renal failure with need for access for hemodialysis and infected peritoneal dialysis catheter Description of procedure The patient was taken to the operating room and transferred to the operating table in the supine position. Pressure points are padded and SCDs placed lower extremity. Monitored anesthesia was administered and the neck was prepped and draped sterile fashion using chloride same. Preoperative antibiotics were administered and a timeout was performed. Ultrasound was used to identify the internal jugular vein and local anesthetic was infiltrated around the vein. Local anesthetic was also administered around the planned tract site down to the anterior chest wall below the clavicle. The vein was accessed on first stick and nonpulsatile venous blood was obtained. A wire was placed using Seldinger technique. An incision was made alongside the wire using a long blade scalpel and a separate incision below the clavicle was made with an 11 blade scalpel. A 19 cm catheter was tunneled from the chest incision into the neck wound and a dilator peel-away sheath was placed over the wire. The wire and dilator was removed and the catheter was placed to the peel-away sheath. The catheter was secured in place in the right atrium on fluoroscopic images. Both returned blood easily and were flushed with heparin. The catheter was secured in place using 3-0 nylon sutures and the neck incision was closed with 3 -0 nylon suture. Sterile dressings were applied. The abdomen was then prepped and draped sterilely. No repeat timeout was needed since all the team stated in the room. Local anesthetic was administered around the peritoneal dialysis catheter in the left lower quadrant of the abdomen and the proximal cuff was freed up from the rectus muscles. Dissection then continued down below the anterior abdominal wall fascia the second cuff was freed up completely. Catheter was removed and the tip was sent for culture. The fascial closure was performed on the anterior fascia with interrupted 0 PDS sutures. The skin was closed loosely with 4-0 Monocryl and Steri-Strips and sterile dressings were applied. Patient tolerated the procedure well. The patient was awakened from anesthesia and transferred to recovery. Postoperative plan Begin hemodialysis and obtained chest x-ray postop Follow-up peritoneal dialysis catheter cultures Implants: 19cm tunneled hemodialysis catheter Anesthesia: MAC, local Surgeon / Physician: Zi Aquino Specimens: other (peritoneal dialysis catheter tip) Condition: stable Disposition: PACU Results - Labs CBC & BMP: 05/14/17 03:08 05/14/17 03:09 Discharge Plan - Discharge Medications No Action HYDROcodone/ACETAMIN 5-325 [[place] 5-325] 1 tablet PO Q4H PRN tablet PRN Reason: Pain Mild (1-3) Lisinopril [Prinivil] 20 mg PO DAILY #30 Calcitriol 0.5 mcg PO DAILY amLODIPine [Norvasc] 10 mg PO DAILY cloNIDine HCl [Clonidine HCl] 0.1 mg PO BID - Follow Up or Referral - Forms/Instructions
--- NOTE | 2017-05-14 08:56 | Anesthesia Post-Op ---
Anesthesia Post OP - Post Ansesthetic Evaluation Patient seen in post op: Yes Resp: within normal limits CV: within normal limits Mental: within normal limits Temp: within normal limits [id number]: within normal limits Nausea and Vomiting: within normal limits Pain: within normal limits
--- NOTE | 2017-05-14 09:02 | Hospitalist Progress Note ---
Assessment and Plan (1) Peritonitis due to infected peritoneal dialysis catheter Problem details: Continue intraperitoneal ancef and fortaz pending ID and sensitivities. one 6 hr dwell daily until removal. Status: Acute Assessment and plan: He is presently being treated with peritoneal cefazolin and and ceftazidime and oral ciprofloxacin. He is status post removal of the peritoneal catheter. Continues on the above antibiotics as per infectious diseases. Current Visit: Yes (2) End-stage renal disease on peritoneal dialysis Status: Acute Assessment and plan: As noted above peritoneal dialysis catheter has been removed and he will be temporarily managed with hemodialysis, as per nephrology. Current Visit: Yes (3) Essential hypertension Status: Acute Assessment and plan: His blood pressure today is 110/69. He continues on his present antihypertensive medications. Current Visit: Yes Hospitalist: Subjective Interval history: Mr. Pino is status post removal of the peritoneal dialysis catheter. He will undergo hemodialysis under the management of nephrology. He continues on intra-peritoneal ceftezole and and ceftazidime and oral ciprofloxacin, under the management of infectious diseases. Exam - Constitutional Vitals: Period Temp Pulse Resp BP Sys/Schilling Pulse Ox Last 24 Hr 98.1 F-98.6 F 83-104 16-20 104-147/61-89 94-99 General appearance: no acute distress - Head Head exam: Present: normal inspection - Neck Neck exam: Present: normal inspection - Respiratory Respiratory exam: Present: clear to auscultation bilaterally - Cardiovascular Cardiovascular exam: Present: regular rate and rhythm - GI/Abdominal GI/Abdominal exam: Present: normal bowel sounds, soft, other (Nontender with no palpable masses or hepatosplenomegaly. No evidence of active infection.) - Extremities Exam Extremities exam: Present: normal inspection - Skin Skin exam: Present: normal color, warm, intact Results - Labs CBC & BMP: 05/14/17 03:08 05/14/17 03:09
[2017-05-14] MEDS: LISINOPRIL 20 MG TABLET PO SCH (09:10)
--- NOTE | 2017-05-14 09:11 | XRay Report ---
Portable chest Indication: Line placement Comparison: May 10, 2017 Findings: Cardiomediastinal contours are stable. Interval satisfactory placement of dual lumen right central venous catheter. Bibasilar atelectasis, improved on the right. No acute osseous abnormalities. Visualized upper abdomen demonstrates no acute pathology. Impression: Uncomplicated right central venous catheter placement PROCEDURE INTERPRETED AT [facility] DEPARTMENT OF RADIOLOGY Final Report Signed by: Ameena Wilkerson MD
[2017-05-14] MEDS ORDERED: SODIUM CHLORIDE 0.9% 250 ML IV SCH (09:30)
[2017-05-14] MEDS ORDERED: HEPARIN 10,000 UNIT/10 ML VIAL IV SCH (10:00)
--- NOTE | 2017-05-14 10:34 | Nephrology Progress Note ---
Nephrology - PN: Subj Interval history: Seen during dialysis. Hemodialysis catheter functioning adequately. Peritoneal dialysis catheter removed today Exam (PN)-Nephrology - Vital Signs Vital signs: Period Temp Pulse Resp BP Sys/Schilling Pulse Ox Last 24 Hr 97.5 F-98.6 F 75-104 14-22 104-147/61-89 94-100 Exam: ENT: Normal Cardiovascular: Regular rate and rhythm. No murmur rub or gallop Lungs: Clear Abdomen: Nontender. Positive bowel sounds Extremities: Trace edema - Lab 05/14/17 03:08 05/14/17 03:09 Most recent lab results Calcium 7.5 MG/DL (8.5-10.1) L 05/14/17 03:09 Phosphorus 2.8 MG/DL (2.5-4.9) 05/11/17 06:22 Magnesium 1.9 MG/DL (1.8-2.4) 05/11/17 06:22 Assessment and Plan (1) End stage renal disease Status: Chronic Assessment and plan: 57-year-old man with: * ESRD. Seen during hemodialysis. Blood pressure stable * Infected PD catheter. Removed today. Continue antibiotics * Hypertension. Controlled Current Visit: No (2) Essential hypertension Status: Acute Current Visit: Yes (3) Peritonitis due to infected peritoneal dialysis catheter Problem details: Continue intraperitoneal ancef and fortaz pending ID and sensitivities. one 6 hr dwell daily until removal. Status: Acute Current Visit: Yes (4) HTN (hypertension) Status: Chronic Current Visit: No Qualifiers: Hypertension type: essential hypertension Qualified Code(s): I10 - Essential (primary) hypertension
[2017-05-14] MEDS: ENOXAPARIN 30 MG/0.3 ML SYRINGE SUBCUT SCH (13:12)
[2017-05-14] MEDS: CIPROFLOXACIN 500 MG TABLET PO SCH (13:19)
[2017-05-14] MEDS: CALCITRIOL 0.5 MCG CAPSULE PO SCH (13:19)
[2017-05-14] MEDS: POTASSIUM CHLORIDE 20 MEQ TABLET PO PRN ×4 (13:19→18:10)
[2017-05-14] MEDS ORDERED: MIDAZOLAM 2 MG/2 ML VIAL ONE (13:57)
[2017-05-14] MEDS ORDERED: fentaNYL 100 MCG/2 ML VIAL ONE (13:58)
[2017-05-14] MEDS ORDERED: SODIUM CHLORIDE 0.9% 100 ML IV ONE (13:58)
--- NOTE | 2017-05-14 18:57 | Interventional Radiology Rpt ---
Single fluoroscopic image of the chest May 14, 2017 Indication: Catheter placement Comparison images not available Findings: Single coned-down fluoroscopic images of the chest demonstrates dual lumen central venous catheter overlying the mediastinum. Fluoroscopy time recorded 6.2 seconds. Radiation dose of 0.63522 mGym2 Impression: Technically successful central venous catheter placement with submitted images satisfactory for the intended purpose PROCEDURE INTERPRETED AT [facility] DEPARTMENT OF RADIOLOGY Final Report Signed by: Ameena Wilkerson MD
[2017-05-14] MEDS: DOCUSATE SODIUM 100 MG CAPSULE PO PRN (20:05)
[2017-05-14] MEDS: ONDANSETRON 4 MG/2 ML VIAL IV PRN (20:06)
[2017-05-14] MEDS: MORPHINE 2 MG/1 ML SYRINGE IV PRN (20:07)
[2017-05-15 06:58] LABS: Calcium 7.6 MG/DL (8.5-10.1)
[2017-05-15 06:59] LABS: Osmolality,Calculated 273.8 MOS/KG (273-304); Potassium 5.7 MMOL/L (3.5-5.1)
[2017-05-15] MEDS: amLODIPine 10 MG TABLET PO SCH (08:14)
[2017-05-15] MEDS: DOCUSATE SODIUM 100 MG CAPSULE PO PRN (08:14)
[2017-05-15] MEDS: PANTOPRAZOLE 40 MG TABLET PO SCH (08:14)
[2017-05-15] MEDS: CIPROFLOXACIN 500 MG TABLET PO SCH (08:14)
[2017-05-15] MEDS: LISINOPRIL 20 MG TABLET PO SCH (08:14)
[2017-05-15] MEDS: ENOXAPARIN 30 MG/0.3 ML SYRINGE SUBCUT SCH ×2 (08:14→09:33)
[2017-05-15] MEDS: CALCITRIOL 0.5 MCG CAPSULE PO SCH (08:14)
[2017-05-15] MEDS: cloNIDine 0.1 MG TABLET PO SCH ×2 (08:14→20:56)
--- NOTE | 2017-05-15 08:43 | Hospitalist Progress Note ---
Assessment and Plan (1) Peritonitis due to infected peritoneal dialysis catheter Problem details: Continue intraperitoneal ancef and fortaz pending ID and sensitivities. one 6 hr dwell daily until removal. Status: Acute Assessment and plan: He is presently being treated with only oral ciprofloxacin. The peritoneal dialysis catheter has been removed. I await recommendations from Dr. Michele Griffin. Current Visit: Yes (2) End-stage renal disease on peritoneal dialysis Status: Acute Assessment and plan: As noted above, the peritoneal dialysis catheter has been removed, a tunneled right internal jugular vein hemodialysis catheter has been inserted, and he has been begun on hemodialysis. Hemodialysis will continue under the management of nephrology. Current Visit: Yes (3) Essential hypertension Status: Acute Assessment and plan: His blood pressure today is 136/74. He continues on his present antihypertensive medications. Current Visit: Yes Hospitalist: Subjective Interval history: Patient is a 1 day status post removal of peritoneal dialysis catheter and insertion of right internal jugular vein tunneled hemodialysis catheter. He underwent successful hemodialysis yesterday. He continues on oral ciprofloxacin. He will be able to be discharged to home when acceptable with nephrology and infectious diseases. I would anticipate discharge most probably on 05/17/17. Exam - Constitutional Vitals: Period Temp Pulse Resp BP Sys/Schilling Pulse Ox Last 24 Hr 97.2 F-98.9 F 55-100 14-22 108-151/67-81 90-100 General appearance: no acute distress - Head Head exam: Present: normal inspection - Neck Neck exam: Present: normal inspection - Respiratory Respiratory exam: Present: clear to auscultation bilaterally - Cardiovascular Cardiovascular exam: Present: regular rate and rhythm - GI/Abdominal GI/Abdominal exam: Present: normal bowel sounds, soft, other (Nontender with no palpable masses or hepatosplenomegaly.) - Extremities Exam Extremities exam: Present: normal inspection - Skin Skin exam: Present: normal color, warm, intact Results - Labs CBC & BMP: 05/14/17 03:08 05/15/17 05:43
--- NOTE | 2017-05-15 11:41 | Nephrology Progress Note ---
Nephrology - PN: Subj Interval history: No new symptoms today. He tolerated dialysis well yesterday Exam (PN)-Nephrology - Vital Signs Vital signs: Period Temp Pulse Resp BP Sys/Schilling Pulse Ox Last 24 Hr 97.2 F-98.9 F 55-100 16-18 109-151/67-81 90-99 Exam: Gen.: Alert and oriented x3. ENT: Pupils equal round reactive to light. EOMs intact. Mucous membranes moist. Neck: Supple. No JVD or bruit. Cardiovascular: Regular rate and rhythm. No murmur rub or gallop Lungs: Clear Abdomen: Soft. Mild tenderness at previous PD catheter site Extremities: No edema - Lab 05/14/17 03:08 05/15/17 05:43 Most recent lab results Calcium 7.6 MG/DL (8.5-10.1) L 05/15/17 05:43 Phosphorus 2.8 MG/DL (2.5-4.9) 05/11/17 06:22 Magnesium 1.9 MG/DL (1.8-2.4) 05/11/17 06:22 Assessment and Plan (1) End stage renal disease Status: Chronic Assessment and plan: 57-year-old man with: * ESRD. Hemodialysis yesterday * Infected PD catheter. Removed yesterday. Continue antibiotics * Hypertension. Controlled Current Visit: No (2) Essential hypertension Status: Acute Current Visit: Yes (3) Peritonitis due to infected peritoneal dialysis catheter Problem details: Continue intraperitoneal ancef and fortaz pending ID and sensitivities. one 6 hr dwell daily until removal. Status: Acute Current Visit: Yes (4) HTN (hypertension) Status: Chronic Current Visit: No Qualifiers: Hypertension type: essential hypertension Qualified Code(s): I10 - Essential (primary) hypertension
--- NOTE | 2017-05-15 12:48 | Event Note ---
No events overnight. Patient tolerated hemodialysis well yesterday. His abdominal pain is improving. He is afebrile. On exam he has a clean abdominal dressing and this was taken off and there is no erythema on the incision. There is minimal tenderness on exam. Continue diet as tolerated and antibiotics.
[2017-05-15] MEDS: MORPHINE 2 MG/1 ML SYRINGE IV PRN (20:55)
[2017-05-15] MEDS: ONDANSETRON 4 MG/2 ML VIAL IV PRN (20:56)
--- NOTE | 2017-05-16 08:39 | Hospitalist Progress Note ---
Assessment and Plan (1) Peritonitis due to infected peritoneal dialysis catheter Problem details: Continue intraperitoneal ancef and fortaz pending ID and sensitivities. one 6 hr dwell daily until removal. Status: Acute Assessment and plan: He is presently being treated with only oral ciprofloxacin. The peritoneal dialysis catheter has been removed. I await recommendations from Dr. Michele Griffin for antibiotics for discharge. Current Visit: Yes (2) End-stage renal disease on peritoneal dialysis Status: Acute Assessment and plan: As noted above, the peritoneal dialysis catheter has been removed, a tunneled right internal jugular vein hemodialysis catheter has been inserted, and he has been begun on hemodialysis. Hemodialysis will continue under the management of nephrology. Arrangements are being made for outpatient hemodialysis. Current Visit: Yes (3) Essential hypertension Status: Acute Assessment and plan: His blood pressure today is 133/69. He continues on his present antihypertensive medications. Current Visit: Yes Hospitalist: Subjective Interval history: Mr. Pino spent an uneventful night. He is comfortable today with no complaints. He is not experiencing abdominal pain. He is scheduled to undergo hemodialysis today. I await antibiotic recommendations from Dr. Leno Griffin. He should be ready for discharge once outpatient hemodialysis arrangements have been made. Exam - Constitutional Vitals: Period Temp Pulse Resp BP Sys/Schilling Pulse Ox Last 24 Hr 97.9 F-98.8 F 76-93 16-19 122-135/69-79 96-98 General appearance: no acute distress - Head Head exam: Present: normal inspection - Neck Neck exam: Present: normal inspection - Respiratory Respiratory exam: Present: clear to auscultation bilaterally - Cardiovascular Cardiovascular exam: Present: regular rate and rhythm - GI/Abdominal GI/Abdominal exam: Present: normal bowel sounds, soft, other (Nontender with no palpable masses or hepatosplenomegaly.) - Extremities Exam Extremities exam: Present: normal inspection - Skin Skin exam: Present: normal color, warm, intact Results - Labs CBC & BMP: 05/14/17 03:08 05/15/17 05:43
--- NOTE | 2017-05-16 08:43 | Event Note ---
No events overnight. Patient is tolerating diet with no abdominal complaints. Is having some pain in his catheter site but it looks fine. The abdominal incision is clean and dry with no evidence of infection. Please call back with any further questions that may arise. The patient is to follow-up with Dr. Kyler Cox after discharge for AV access.
--- NOTE | 2017-05-16 09:25 | Dialysis Note ---
Dialysis Note - Dialysis Note S: Mr Pino is seen on dialysis. K 5.7 this am from 3.2 yesterday. Admits to eating a large baked potato (avg 453mg K+ in one baked potato) O: VSS A: ESRD with infected PD catheter removed. Tolerating day #2/3 hemodialysis initiation s complications. P: Full dose HD tomorrow, 4 hrs. Strict renal diet (low K, low PO4). Fluid restriction to 1.5L/day. Stable for d/c when outpt HD chair arranged.
--- NOTE | 2017-05-16 10:04 | Event Note ---
Pt has a chair for outpt hemodialysis tomorrow at 1300hrs, and TTSa chronically. He is stable for d/c today after dialysis or in am early enough for him to get to the dialysis unit for day #3/3 initiation. Continue cipro po per ID recs (14 days after PD catheter removal).
--- NOTE | 2017-05-16 11:16 | Pathology Report from [facility] ---
[facility] [place] [id number] PATIENT NAME : Isabella Pino ORDERING DR : Zi Aquino MD CLINICAL HX: Peritonitis due to infected peritoneal dialysis catheter POST-OP DX: Same SPECIMEN INFO: Peritoneal dialysis catheter GROSS DESCRIPTION: Received fresh labeled ISABELLA PINO is a dialysis catheter submitted for gross exam only. DIAGNOSIS FOR ISABELLA PINO: Dialysis catheter, gross only. COLLECTED DATE: 05/15/2017 [facility] DATE: 05/16/2017 ELECTRONICALLY SIGNED BY: Homa Mcqueen III, M.D. 05/16/2017 - 7:30:57 MTDD
[2017-05-16] MEDS ORDERED: HEPARIN 10,000 UNIT/10 ML VIAL IV SCH (11:30)
--- NOTE | 2017-05-16 12:43 | Infectious Disease Progress ---
Assessment and Plan (1) End-stage renal disease on peritoneal dialysis Status: Acute Current Visit: Yes (2) Essential hypertension Status: Acute Current Visit: Yes (3) Peritonitis due to infected peritoneal dialysis catheter Problem details: Continue intraperitoneal ancef and fortaz pending ID and sensitivities. one 6 hr dwell daily until removal. 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 Blood cultures NGTD. I think the GPC is at the end of the catheter tip represent contamination from the skin. Patient is much better on antibiotic therapy for the Pantoea. Recommendations: Continue ciprofloxacin. Will treat for 2 weeks from date of removal of catheter, so until May 28. Current Visit: Yes Infectious Disease - PN: Subj Interval history: Patient doing fairly okay with minimal abdominal pain. His catheter was removed 2 days ago and he got a hemodialysis catheter placed. Was getting dialysis when I saw him. Has not had fever or other symptoms. Infectious Disease Exam (PN) - Constitutional Vitals: Temp Pulse Resp BP Pulse Ox 97.9 F 74 18 121/72 97 05/16/17 07:30 05/16/17 07:30 05/16/17 07:30 05/16/17 07:30 05/16/17 07:30 General appearance: no acute distress Exam: General appearance: no acute distress, was on dialysis - Eye Eye exam: Present: EOMI. no icterus Pupils: Present: IZABELLA - ENT ENT exam: no oral exudates - Respiratory Respiratory exam: vesicular BS, no crepitations or wheezes - Cardiovascular Cardiovascular exam: regular rate and rhythm, no murmurs - GI/Abdominal GI/Abdominal exam: normal bowel sounds, soft, nontender except on the left side where the PD catheter was removed - Extremities Exam Extremities exam: no edema - Skin Skin exam: no rash Results - Labs CBC & BMP: 05/14/17 03:08 05/15/17 05:43 Lab Results: I have reviewed the past 24 hour labs (GPCs from PD catheter tip)
[2017-05-16] MEDS: LISINOPRIL 20 MG TABLET PO SCH (13:18)
[2017-05-16] MEDS: cloNIDine 0.1 MG TABLET PO SCH ×2 (13:18→21:11)
[2017-05-16] MEDS: amLODIPine 10 MG TABLET PO SCH (13:19)
[2017-05-16] MEDS: CIPROFLOXACIN 500 MG TABLET PO SCH (14:03)
[2017-05-16] MEDS: CALCITRIOL 0.5 MCG CAPSULE PO SCH (14:03)
[2017-05-16] MEDS: PANTOPRAZOLE 40 MG TABLET PO SCH (14:03)
[2017-05-16] MEDS: ENOXAPARIN 30 MG/0.3 ML SYRINGE SUBCUT SCH (14:04)
[2017-05-16] MEDS: MORPHINE 2 MG/1 ML SYRINGE IV PRN (14:04)
--- NOTE | 2017-05-17 07:44 | Discharge Summary ---
Hospital Course - Hospital Course Hospital Course: Mr. 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 He had recent umbilical hernia repair by Dr Marisol GAR with mesh. Had onset of abd pain last night. Had not looked at his effluent to assess for cloudiness prior to the pain. It was cloudy once he did look this am. He denies cough, fever, chills. His PD fluid meets diagnostic criteria for peritonitis. He has been given IV zosyn and flagyl. CXR reviewed by me does not appear to be pneumonia. His exchanges have been reduced from 3 x nightly to once since the hernia repair surgery. Mr. Pino was admitted to the hospital with peritonitis secondary to an infected peritoneal dialysis catheter. He was seen in consultation by Dr. Tavon Ibrahim of nephrology, Dr. Michele Griffin of infectious disease, and Dr. Zi Aquino of general surgery. He was initially treated with intravenous vancomycin which was subsequently changed to intraperitoneal ceftezole and and ceftazidime. He was subsequently begun on oral ciprofloxacin. The peritoneal dialysis catheter was removed by Dr. Aquino. A Tessio catheter was inserted into the right internal jugular vein for hemodialysis. He was maintained on hemodialysis under the management of nephrology. His antibiotics were continued under the management of infectious diseases. At the time of his discharge Mr. Pino was stable and comfortable. Arrangements had been made for outpatient hemodialysis and follow-up appointments with nephrology and infectious disease. Diagnosis - Discharge Diagnosis (1) Peritonitis due to infected peritoneal dialysis catheter Status: Acute (2) End-stage renal disease on peritoneal dialysis Status: Chronic (3) Essential hypertension Status: Chronic Discharge Plan - Discharge Data Disposition: Disch To Home/Self Care Condition at Discharge: Stable Discharge Diet: advance to your usual diet Activity: resume usual activities as tolerated - Discharge Medications New Ciprofloxacin Tab [Cipro Tab] 500 mg PO DAILY #12 tablet Continue HYDROcodone/ACETAMIN 5-325 [[place] 5-325] 1 tablet PO Q4H PRN tablet PRN Reason: Pain Mild (1-3) Lisinopril [Prinivil] 20 mg PO DAILY #30 Calcitriol 0.5 mcg PO DAILY amLODIPine [Norvasc] 10 mg PO DAILY cloNIDine HCl [Clonidine HCl] 0.1 mg PO BID - Follow Up or Referral - Forms/Instructions Exam - Constitutional Vitals: Period Temp Pulse Resp BP Sys/Schilling Pulse Ox Last 24 Hr 98.0 F-98.6 F 83-96 14-18 119-138/63-89 94-97 Discharge Results Procedures and tests throughout hospitalization: Pending Orders 05/14/17 Catheter Tip Culture Routine Labs on day of discharge: Preliminary micro results at discharge 05/14/17 Unknown Catheter Tip Culture - Preliminary Catheter Tip - Catheter tip Gram Positive Cocci DS: Provider Date of admission: 05/10/17 09:31 Primary care physician: BRETT WAYNE Attending physician on admission: Kyler Hong Consults: 05/10/17 09:31 Consult to Physician [CONS] Routine Comment: pt of [place], peritonitis,PD pt Consulting Provider: Tavon Ibrahim When should Consulting Provider be notified: Now Consult Notification Comment: Dr Ibrahim saw pt. 05/10/17 09:43 Consult to Pharmacy [CONS] Routine Reason for Pharmacy Consult: Dose/Manage Antibiotics 05/10/17 14:18 Consult to Dietitian [CONS] Routine Reason for Dietitian: Other 05/11/17 08:22 Consult to Physician [CONS] Routine Comment: peritonitis ESRD on chronic PD Consulting Provider: Consult to Specialist Group: Infectious Disease When should Consulting Provider be notified: Now Person Notified: MICHAELA Date Notified: 05/11/17 Time Notified: 08:48 05/13/17 09:30 Consult to Physician [CONS] Routine Comment: remove PD CATH and place Diaylsis Cath Consulting Provider: Jos Damon III. Person Notified: TONY Date Notified: 05/13/17 Time Notified: 09:42 Consult Notification Comment: 05/14/17 11:14 Consult to Case Mgmt/Social Srvs [CONS] Routine Reason for Case Mgmt/Social Srvs: Dialysis Consult Comment: new hemodialysis patient 05/15/17 07:34 Consult to Case Mgmt/Social Srvs [CONS] Routine Reason for Case Mgmt/Social Srvs: Other Consult Comment: Home peritoneal antibiotics for 10 days 05/16/17 08:40 Consult to Case Mgmt/Social Srvs [CONS] Routine Reason for Case Mgmt/Social Srvs: Discharge Planning Consult Comment: Discharge tomorrow Discharging clinician: Kyler Hong
[2017-05-17 07:53] VITALS: BP 127/77
[2017-05-17] MEDS: ENOXAPARIN 30 MG/0.3 ML SYRINGE SUBCUT SCH ×2 (08:42→09:11)
[2017-05-17] MEDS: cloNIDine 0.1 MG TABLET PO SCH (08:42)
[2017-05-17] MEDS: CALCITRIOL 0.5 MCG CAPSULE PO SCH (08:42)
[2017-05-17] MEDS: PANTOPRAZOLE 40 MG TABLET PO SCH (08:42)
[2017-05-17] MEDS: CIPROFLOXACIN 500 MG TABLET PO SCH (08:42)
[2017-05-17] MEDS: LISINOPRIL 20 MG TABLET PO SCH (08:42)
[2017-05-17] MEDS: amLODIPine 10 MG TABLET PO SCH (08:44)
--- NOTE | 2017-05-17 09:35 | Nephrology Progress Note ---
Nephrology - PN: Subj Interval history: Pt in good spirits. Denies SOB/worsening pain. Has chair in outpt HD unit at 1300 hrs today. Exam (PN)-Nephrology - Vital Signs Vital signs: Period Temp Pulse Resp BP Sys/Schilling Pulse Ox Last 24 Hr 98.0 F-98.6 F 75-96 14-18 119-138/63-89 94-97 - General Appearance General appearance: well-developed, chronically ill EENT: ATNC, PERRL, hearing intact, vision intact Neck: no JVD, no thyromegaly Respiratory: no kyphosis, clear Cardiology: no murmurs, no rub Gastrointestinal: normoactive bowel sounds, no tenderness Integumentary: no rash, warm and dry Neurologic: no focal deficit, no asterixis, alert and oriented x3 Musculoskeletal: no deformities, no erythema Psychiatric: mood/affect appropriate, cooperative - Lab 05/14/17 03:08 05/15/17 05:43 Most recent lab results Calcium 7.6 MG/DL (8.5-10.1) L 05/15/17 05:43 Phosphorus 2.8 MG/DL (2.5-4.9) 05/11/17 06:22 Magnesium 1.9 MG/DL (1.8-2.4) 05/11/17 06:22 Assessment and Plan (1) Peritonitis due to infected peritoneal dialysis catheter Problem details: Continue cipro 500mg po daily for total 2 weeks after PD catheter removal. Last dose 21Oct. Status: Acute Assessment and plan: Stable for d/c today. HDD at 1300hrs [facility] HD unit. Current Visit: Yes (2) End-stage renal disease on peritoneal dialysis Status: Chronic Current Visit: Yes Specialty Discharge - Follow Up or Referrals
--- NOTE | 2017-05-17 10:07 | Infectious Disease Progress ---
Assessment and Plan (1) End-stage renal disease on peritoneal dialysis Status: Chronic Current Visit: Yes (2) Essential hypertension Status: Chronic Current Visit: Yes (3) Peritonitis due to infected peritoneal dialysis catheter Problem details: Continue cipro 500mg po daily for total 2 weeks after PD catheter removal. Last dose 21Oct. 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 Blood cultures NG. I think the GPC is at the end of the catheter tip represent contamination from the skin. Patient is much better on antibiotic therapy for the Pantoea this the peritonitis more or less resolved clinically [no more abdominal pain]. Recommendations: Continue ciprofloxacin until May 28. Current Visit: Yes Infectious Disease - PN: Subj Interval history: Patient doing well, no significant abdominal pain. No fever. Tolerating oral antibiotic therapy. Infectious Disease Exam (PN) - Constitutional Vitals: Temp Pulse Resp BP Pulse Ox 98.1 F 75 18 127/77 94 L 05/17/17 07:35 05/17/17 07:35 05/17/17 07:35 05/17/17 07:35 05/17/17 07:35 General appearance: no acute distress Exam: General appearance: no acute distress - Eye Eye exam: Present: EOMI. no icterus Pupils: Present: IZABELLA - ENT ENT exam: no oral exudates - Respiratory Respiratory exam: vesicular BS, no crepitations or wheezes - Cardiovascular Cardiovascular exam: regular rate and rhythm, no murmurs - GI/Abdominal GI/Abdominal exam: normal bowel sounds, soft, nontender - Extremities Exam Extremities exam: no edema - Skin Skin exam: no rash Results - Labs CBC & BMP: 05/14/17 03:08 05/15/17 05:43 Lab Results: I have reviewed the past 24 hour labs Specialty Discharge - Follow Up or Referrals
== END 2017-05-17 10:16 | disposition home or self-care (01) | DRG 981 ==
LOC: N.ED 07:54 → N.EDINP 09:31 → N.5E 14:00

== ENCOUNTER 2019-06-25 15:12 | Inpatient (IN) ==
[2019-06-25] MEDS ORDERED: PIPERACILLIN/TAZOBACTAM 3,375 MG in SODIUM CHLORIDE 0.9% 100 ML IV STA (17:35)
[2019-06-25] MEDS ORDERED: SODIUM CHLORIDE 0.9% 500 ML IV STA (17:42)
[2019-06-25 17:57] LABS: Basophils % 0.1 % (0.0-0.8); Hematocrit 37.7 VOL% (42.0-52.0); Hemoglobin 12.1 GM/DL (14.0-18.0); Immature Granulocytes % 0.3 %; Immature Granulocytes Absolute 0.03 #; Lymphocytes # 0.7 10*3/uL (1.4-4.0); Lymphocytes % 8.5 % (21.2-54.2); Mean Corpuscular HGB Conc 32.1 GM/DL (32-36); Mean Corpuscular Volume 74.5 FL (87-102); Mean Platelet Volume 8.7 FL (9.6-12.0); Monocytes % 9.2 % (1.7-12.7); Neutrophils % 81.9 % (38.7-73.9); Platelet Count 205 T/CUMM (130-400); Red Blood Count 5.06 MC/CUMM (3.8-5.5); Red Cell Distribution Width 13.3 % (9.3-17.3); White Blood Count 8.6 T/CUMM (4-12)
[2019-06-25 18:13] LABS: Alanine Aminotransferase 13 U/L (16-61); Albumin 1.5 G/DL (3.4-5.0); Alkaline Phosphatase 70 U/L (45-117); Amylase 75 U/L (25-115); Aspartate Amino Transferase 12 U/L (0-37); Bilirubin,Total < 0.39 MG/DL (0.2-1.0); Blood Urea Nitrogen 22 MG/DL (7-18); Calcium 8.2 MG/DL (8.5-10.1); Estimated Glom Filtration Rate 8 ML/MIN; Glucose 119 MG/DL (74-106); Total Protein 6.6 G/DL (6.4-8.3)
[2019-06-25 18:15] LABS: Albumin 1.4 G/DL (3.4-5.0); Bilirubin,Total 0.8 MG/DL (0.2-1.0); Calcium 8.4 MG/DL (8.5-10.1); Osmolality,Calculated 272.2 MOS/KG (273-304); Total Protein 7.3 G/DL (6.4-8.3)
[2019-06-25 20:43] LABS: Neutrophils,Peritoneal Fluid 94 %; RBC,Peritoneal Fluid < 1 T/CUMM
[2019-06-25 21:19] LABS: Apearance,Urine CLEAR (Clear); Bilirubin,Urine Negative (Negative); Blood, Urine Negative (Negative); Glucose,Urine (UA) Negative (Negative); Ketones,Urine Negative (Negative); Nitrite,Urine Negative (Negative); Protein,Urine 100 MG/DL; RBC,Urine 1 /HPF (0-4); Urine Color Yellow (Yellow); Urine Specific Gravity 1.013 (1.001-1.035); Urine Urobilinogen < 2.0 EU/DL (0.2-1.0); WBC,Urine 1 /HPF (0-6)
[2019-06-25] MEDS ORDERED: NICOTINE 21 MG/24 HR PATCH TRANSDERM PRN (22:05)
[2019-06-25] MEDS ORDERED: HEPARIN 10,000 UNIT/10 ML VIAL INTRAPERIT SCH (22:05)
[2019-06-25] MEDS ORDERED: BISACODYL 5 MG TABLET PO PRN (22:05)
[2019-06-25] MEDS ORDERED: ACETAMINOPHEN 325 MG TABLET PO PRN (22:05)
[2019-06-26] MEDS: HEPARIN 5,000 UNIT/1 ML VIAL INTRAPERIT SCH (00:47)
[2019-06-26 06:10] LABS: Basophils % 0.1 % (0.0-0.8); Eosinophils % 0.4 % (0.00-10.9); Hematocrit 33.9 VOL% (42.0-52.0); Hemoglobin 11.2 GM/DL (14.0-18.0); Immature Granulocytes % 0.4 %; Immature Granulocytes Absolute 0.03 #; Lymphocytes % 12.7 % (21.2-54.2); Mean Corpuscular Volume 73.4 FL (87-102); Mean Platelet Volume 10.6 FL (9.6-12.0); Monocytes % 10.9 % (1.7-12.7); Neutrophils % 75.5 % (38.7-73.9); Platelet Count 231 T/CUMM (130-400); Red Blood Count 4.62 MC/CUMM (3.8-5.5); Red Cell Distribution Width 13.2 % (9.3-17.3); White Blood Count 7.6 T/CUMM (4-12)
[2019-06-26 06:29] LABS: Calcium 8.4 MG/DL (8.5-10.1); Osmolality,Calculated 276.8 MOS/KG (273-304)
[2019-06-26] MEDS: HYDROmorphone 2 MG/1 ML VIAL IV PRN ×3 (07:32→22:40)
[2019-06-26] MEDS: ONDANSETRON 4 MG/2 ML VIAL IV PRN ×3 (13:01→22:40)
[2019-06-26] MEDS ORDERED: POLYETHYLENE GLYCOL POWDER 17 GM PACK PO ONE (14:01)
[2019-06-26] MEDS: LISINOPRIL 20 MG TABLET PO SCH (16:50)
[2019-06-27] MEDS: HEPARIN 5,000 UNIT/1 ML VIAL INTRAPERIT SCH ×2 (00:40→21:51)
[2019-06-27] MEDS: ceFAZolin 1,000 MG VIAL INTRAPERIT SCH ×4 (00:40→18:58)
[2019-06-27] MEDS: DOCUSATE SODIUM 100 MG CAPSULE PO SCH ×3 (03:29→21:51)
[2019-06-27 04:18] LABS: Neutrophils,Peritoneal Fluid 81 %; RBC,Peritoneal Fluid < 1 T/CUMM
[2019-06-27 05:55] LABS: Basophils % 0.1 % (0.0-0.8); Hematocrit 39.7 VOL% (42.0-52.0); Immature Granulocytes % 0.4 %; Lymphocytes # 0.7 10*3/uL (1.4-4.0); Lymphocytes % 6.9 % (21.2-54.2); Mean Corpuscular HGB Conc 32.7 GM/DL (32-36); Mean Corpuscular Volume 72.6 FL (87-102); Mean Platelet Volume 10.2 FL (9.6-12.0); Monocytes % 5.8 % (1.7-12.7); Neutrophils % 86.8 % (38.7-73.9); Platelet Count 270 T/CUMM (130-400); Red Blood Count 5.47 MC/CUMM (3.8-5.5); Red Cell Distribution Width 13.2 % (9.3-17.3); White Blood Count 9.5 T/CUMM (4-12)
[2019-06-27 05:56] LABS: Immature Granulocytes Absolute 0.04 #
[2019-06-27 06:07] LABS: Calcium 9.1 MG/DL (8.5-10.1); Osmolality,Calculated 283.7 MOS/KG (273-304)
[2019-06-27] MEDS: ONDANSETRON 4 MG/2 ML VIAL IV PRN ×3 (06:08→15:52)
[2019-06-27] MEDS: CALCITRIOL 0.25 MCG CAPSULE PO SCH (08:36)
[2019-06-27] MEDS: amLODIPine 10 MG TABLET PO SCH (08:36)
[2019-06-27] MEDS: LISINOPRIL 20 MG TABLET PO SCH (08:36)
[2019-06-27] MEDS: HYDROmorphone 2 MG/1 ML VIAL IV PRN ×2 (10:12→15:52)
[2019-06-28] MEDS: ceFAZolin 1,000 MG VIAL INTRAPERIT SCH ×5 (00:45→23:45)
[2019-06-28 05:47] LABS: Basophils % 0.1 % (0.0-0.8); Eosinophils # 0.1 10*3/uL (0.0-0.87); Eosinophils % 0.5 % (0.00-10.9); Hematocrit 37.3 VOL% (42.0-52.0); Hemoglobin 12.1 GM/DL (14.0-18.0); Immature Granulocytes % 0.4 %; Immature Granulocytes Absolute 0.04 #; Lymphocytes % 10.5 % (21.2-54.2); Mean Corpuscular HGB Conc 32.4 GM/DL (32-36); Mean Corpuscular Volume 73.6 FL (87-102); Mean Platelet Volume 9.9 FL (9.6-12.0); Monocytes % 6.6 % (1.7-12.7); Neutrophils % 81.9 % (38.7-73.9); Platelet Count 275 T/CUMM (130-400); Red Blood Count 5.07 MC/CUMM (3.8-5.5); Red Cell Distribution Width 13.2 % (9.3-17.3); White Blood Count 9.9 T/CUMM (4-12)
[2019-06-28 06:01] LABS: Calcium 8.8 MG/DL (8.5-10.1); Osmolality,Calculated 281.7 MOS/KG (273-304)
[2019-06-28] MEDS: CALCITRIOL 0.25 MCG CAPSULE PO SCH (10:39)
[2019-06-28] MEDS: LISINOPRIL 20 MG TABLET PO SCH (10:40)
[2019-06-28] MEDS: DOCUSATE SODIUM 100 MG CAPSULE PO SCH ×2 (10:40→21:39)
[2019-06-28] MEDS: amLODIPine 10 MG TABLET PO SCH (10:40)
[2019-06-28] MEDS: POTASSIUM CHLORIDE 20 MEQ TABLET PO PRN ×2 (13:57→13:59)
[2019-06-28] MEDS ORDERED: ALUM/MAG/SIMETH/LIDO VISC 1:1 30 ML BOTTLE PO ONE (16:10)
[2019-06-28] MEDS ORDERED: PHENOL 1.4% THROAT SPRAY 177 ML BOTTLE PO PRN (16:11)
[2019-06-28] MEDS: HEPARIN 5,000 UNIT/1 ML VIAL INTRAPERIT SCH (23:45)
[2019-06-29 05:02] LABS: Basophils % 0.3 % (0.0-0.8); Eosinophils # 0.2 10*3/uL (0.0-0.87); Eosinophils % 2.3 % (0.00-10.9); Hemoglobin 12.1 GM/DL (14.0-18.0); Immature Granulocytes % 0.4 %; Immature Granulocytes Absolute 0.03 #; Lymphocytes # 0.8 10*3/uL (1.4-4.0); Lymphocytes % 11.7 % (21.2-54.2); Mean Corpuscular HGB Conc 32.7 GM/DL (32-36); Mean Corpuscular Volume 72.8 FL (87-102); Monocytes % 8.9 % (1.7-12.7); Neutrophils % 76.4 % (38.7-73.9); Platelet Count 243 T/CUMM (130-400); Red Blood Count 5.08 MC/CUMM (3.8-5.5); Red Cell Distribution Width 13.1 % (9.3-17.3); White Blood Count 7.1 T/CUMM (4-12)
[2019-06-29] MEDS: ceFAZolin 1,000 MG VIAL INTRAPERIT SCH ×2 (05:23→14:30)
[2019-06-29 05:34] LABS: Calcium 9.1 MG/DL (8.5-10.1); Osmolality,Calculated 289.1 MOS/KG (273-304)
[2019-06-29] MEDS: LISINOPRIL 20 MG TABLET PO SCH (08:22)
[2019-06-29] MEDS: CALCITRIOL 0.25 MCG CAPSULE PO SCH (08:23)
[2019-06-29] MEDS: amLODIPine 10 MG TABLET PO SCH (08:23)
[2019-06-29] MEDS: DOCUSATE SODIUM 100 MG CAPSULE PO SCH (08:23)
[2019-06-29] MEDS: POTASSIUM CHLORIDE 20 MEQ TABLET PO PRN (08:23)
[2019-06-29 12:15] VITALS: BP 116/77
== END 2019-06-29 14:11 | disposition home or self-care (01) | DRG 867 ==
LOC: N.ED 15:12 → N.EDINP 20:08 → SUATTDRO 20:08 → N.EDINP 20:50 → N.3E 22:03
PROVIDERS: ADMIT Internal Medicine; ATTEND Hospitalist

== ENCOUNTER 2019-06-30 09:59 | Inpatient (IN) ==
[2019-06-30] MEDS ORDERED: ONDANSETRON 4 MG/2 ML VIAL IV STA (10:22)
[2019-06-30 11:37] LABS: Basophils % 0.1 % (0.0-0.8); Eosinophils # 0.1 10*3/uL (0.0-0.87); Eosinophils % 0.6 % (0.00-10.9); Hematocrit 41.8 VOL% (42.0-52.0); Hemoglobin 13.3 GM/DL (14.0-18.0); Immature Granulocytes % 0.7 %; Immature Granulocytes Absolute 0.07 #; Lymphocytes % 10.2 % (21.2-54.2); Mean Corpuscular HGB Conc 31.8 GM/DL (32-36); Mean Corpuscular Volume 74.4 FL (87-102); Mean Platelet Volume 9.7 FL (9.6-12.0); Monocytes % 7.4 % (1.7-12.7); Platelet Count 281 T/CUMM (130-400); Red Blood Count 5.62 MC/CUMM (3.8-5.5); Red Cell Distribution Width 13.3 % (9.3-17.3); White Blood Count 9.7 T/CUMM (4-12)
[2019-06-30 11:49] LABS: Alanine Aminotransferase < 6 U/L (16-61); Albumin 1.6 G/DL (3.4-5.0); Alkaline Phosphatase 80 U/L (45-117); Amylase 152 U/L (25-115); Aspartate Amino Transferase 30 U/L (0-37); Bilirubin,Total < 0.39 MG/DL (0.2-1.0); Blood Urea Nitrogen 34 MG/DL (7-18); CKMB % 7.5 %; Calcium 9.2 MG/DL (8.5-10.1); Estimated Glom Filtration Rate 6 ML/MIN; Glucose 120 MG/DL (74-106); Osmolality,Calculated 287.4 MOS/KG (273-304); Total Protein 7.7 G/DL (6.4-8.3)
[2019-06-30 11:51] LABS: Troponin I 0.084 NG/ML (0.00-0.045)
[2019-06-30] MEDS ORDERED: ACETAMINOPHEN 325 MG TABLET PO PRN (12:07)
[2019-06-30] MEDS ORDERED: ONDANSETRON 4 MG/2 ML VIAL IV PRN (12:07)
[2019-06-30] MEDS ORDERED: PROMETHAZINE 25 MG/1 ML VIAL IM PRN (12:07)
[2019-06-30] MEDS: CLINDAMYCIN INJ 300 MG in PREMIX 1 EACH IV SCH ×2 (16:40→23:17)
[2019-06-30] MEDS: MORPHINE 4 MG/1 ML VIAL IV PRN (16:40)
[2019-06-30] MEDS ORDERED: VANCOMYCIN 1,000 MG VIAL INTRAPERIT ONE (21:00)
[2019-06-30] MEDS: POTASSIUM CHLORIDE 20 MEQ TABLET PO SCH (21:01)
[2019-07-01] MEDS: MORPHINE 4 MG/1 ML VIAL IV PRN (02:03)
[2019-07-01 05:48] LABS: Neutrophils,Peritoneal Fluid 50 %
[2019-07-01 06:23] LABS: Basophils % 0.3 % (0.0-0.8); Eosinophils # 0.2 10*3/uL (0.0-0.87); Eosinophils % 1.8 % (0.00-10.9); Hematocrit 39.9 VOL% (42.0-52.0); Hemoglobin 12.7 GM/DL (14.0-18.0); Immature Granulocytes % 0.7 %; Immature Granulocytes Absolute 0.06 #; Lymphocytes # 1.4 10*3/uL (1.4-4.0); Lymphocytes % 15.6 % (21.2-54.2); Mean Corpuscular HGB Conc 31.8 GM/DL (32-36); Mean Corpuscular Volume 74.7 FL (87-102); Mean Platelet Volume 8.7 FL (9.6-12.0); Monocytes % 8.3 % (1.7-12.7); Neutrophils % 73.3 % (38.7-73.9); Platelet Count 235 T/CUMM (130-400); Red Blood Count 5.34 MC/CUMM (3.8-5.5); Red Cell Distribution Width 13.7 % (9.3-17.3); White Blood Count 8.8 T/CUMM (4-12)
[2019-07-01 06:24] LABS: RBC,Peritoneal Fluid 9 T/CUMM
[2019-07-01 06:38] LABS: Calcium 9.4 MG/DL (8.5-10.1); Osmolality,Calculated 291.3 MOS/KG (273-304)
[2019-07-01] MEDS ORDERED: HEPARIN 5,000 UNIT/1 ML VIAL ONE (06:50)
[2019-07-01] MEDS ORDERED: LIDOCAINE 1%/EPI INJ 20 ML VIAL ONE (06:50)
[2019-07-01] MEDS ORDERED: BUPIVACAINE MPF 0.25% 30 ML VIAL ONE (06:50)
[2019-07-01] MEDS ORDERED: LIDOCAINE 2% 5 ML VIAL ONE (08:27)
[2019-07-01] MEDS ORDERED: SEVOFLURANE 1 UNIT/15 MINUTE INH ONE (08:27)
[2019-07-01] MEDS ORDERED: PROPOFOL 200 MG/20 ML VIAL IV ONE (08:27)
[2019-07-01] MEDS ORDERED: SODIUM CHLORIDE 0.9% 500 ML IV ONE (08:28)
[2019-07-01] MEDS ORDERED: SUCCINYLCHOLINE 200 MG/10 ML VIAL ONE (08:28)
[2019-07-01] MEDS ORDERED: MIDAZOLAM 2 MG/2 ML VIAL ONE (08:28)
[2019-07-01] MEDS ORDERED: ROCURONIUM 100 MG/10 ML VIAL IV ONE (08:28)
[2019-07-01] MEDS ORDERED: ONDANSETRON 4 MG/2 ML VIAL ONE (08:28)
[2019-07-01] MEDS ORDERED: PHENYLEPHRINE 10 MG/1 ML VIAL IV ONE (08:28)
[2019-07-01] MEDS ORDERED: PHENYLEPHRINE 1 MG/10 ML SYRINGE IV ONE (08:28)
[2019-07-01] MEDS ORDERED: fentaNYL 100 MCG/2 ML VIAL ONE (08:28)
[2019-07-01] MEDS ORDERED: ePHEDrine 50 MG/ML AMP ONE (08:28)
[2019-07-01] MEDS: CLINDAMYCIN INJ 300 MG in PREMIX 1 EACH IV SCH ×2 (10:43→16:25)
[2019-07-01] MEDS: POTASSIUM CHLORIDE 20 MEQ TABLET PO SCH (11:10)
[2019-07-01] MEDS: CALCITRIOL 0.25 MCG CAPSULE PO SCH (12:37)
[2019-07-01] MEDS: MULTIVITAMIN (BEROCCA) TABLET PO SCH (12:37)
[2019-07-01] MEDS: LISINOPRIL 20 MG TABLET PO SCH (12:37)
[2019-07-01] MEDS: amLODIPine 10 MG TABLET PO SCH (12:38)
[2019-07-02] MEDS: CLINDAMYCIN INJ 300 MG in PREMIX 1 EACH IV SCH ×3 (00:06→17:56)
[2019-07-02 06:13] LABS: Basophils % 0.3 % (0.0-0.8); Eosinophils # 0.3 10*3/uL (0.0-0.87); Eosinophils % 2.8 % (0.00-10.9); Hematocrit 36.7 VOL% (42.0-52.0); Hemoglobin 11.7 GM/DL (14.0-18.0); Immature Granulocytes % 0.6 %; Immature Granulocytes Absolute 0.06 #; Lymphocytes # 1.1 10*3/uL (1.4-4.0); Lymphocytes % 11.1 % (21.2-54.2); Mean Corpuscular HGB Conc 31.9 GM/DL (32-36); Mean Corpuscular Volume 75.1 FL (87-102); Mean Platelet Volume 10.1 FL (9.6-12.0); Monocytes % 7.7 % (1.7-12.7); Neutrophils % 77.5 % (38.7-73.9); Platelet Count 215 T/CUMM (130-400); Red Blood Count 4.89 MC/CUMM (3.8-5.5); Red Cell Distribution Width 13.5 % (9.3-17.3); White Blood Count 9.6 T/CUMM (4-12)
[2019-07-02 06:28] LABS: Calcium 8.6 MG/DL (8.5-10.1); Osmolality,Calculated 295.1 MOS/KG (273-304)
[2019-07-02] MEDS: amLODIPine 10 MG TABLET PO SCH (08:37)
[2019-07-02] MEDS: MULTIVITAMIN (BEROCCA) TABLET PO SCH (08:37)
[2019-07-02] MEDS: LISINOPRIL 20 MG TABLET PO SCH (08:37)
[2019-07-02] MEDS: CALCITRIOL 0.25 MCG CAPSULE PO SCH (08:37)
[2019-07-02] MEDS: LACTOBACILLUS ACIDOPHILUS/BULGARICUS CAPLET PO SCH (11:08)
[2019-07-02] MEDS ORDERED: METOPROLOL TARTRATE 50 MG TABLET PO ONE (14:31)
[2019-07-02] MEDS ORDERED: ASPIRIN CHEW 81 MG TABLET PO ONE (15:21)
[2019-07-02] MEDS: MORPHINE 4 MG/1 ML VIAL IV PRN (15:34)
[2019-07-02 15:40] LABS: Basophils % 0.3 % (0.0-0.8); Eosinophils # 0.3 10*3/uL (0.0-0.87); Eosinophils % 2.3 % (0.00-10.9); Hematocrit 37.8 VOL% (42.0-52.0); Immature Granulocytes Absolute 0.11 #; Lymphocytes # 1.4 10*3/uL (1.4-4.0); Lymphocytes % 11.9 % (21.2-54.2); Mean Corpuscular HGB Conc 31.7 GM/DL (32-36); Mean Corpuscular Volume 75.8 FL (87-102); Mean Platelet Volume 9.7 FL (9.6-12.0); Monocytes % 7.3 % (1.7-12.7); Neutrophils % 77.2 % (38.7-73.9); Platelet Count 213 T/CUMM (130-400); Red Blood Count 4.99 MC/CUMM (3.8-5.5); White Blood Count 11.6 T/CUMM (4-12)
[2019-07-02] MEDS ORDERED: HEPARIN 10,000 UNIT/10 ML VIAL IV SCH (16:00)
[2019-07-02 16:13] LABS: Calcium 7.8 MG/DL (8.5-10.1); Osmolality,Calculated 279.7 MOS/KG (273-304)
[2019-07-02 16:17] LABS: Troponin I 0.075 NG/ML (0.00-0.045)
[2019-07-02] MEDS: METOPROLOL TARTRATE 25 MG TABLET PO SCH (22:37)
[2019-07-03] MEDS: CLINDAMYCIN INJ 300 MG in PREMIX 1 EACH IV SCH ×3 (00:20→15:26)
[2019-07-03 04:58] LABS: Basophils % 0.4 % (0.0-0.8); Eosinophils # 0.3 10*3/uL (0.0-0.87); Eosinophils % 3.1 % (0.00-10.9); Hemoglobin 11.9 GM/DL (14.0-18.0); Immature Granulocytes % 0.8 %; Immature Granulocytes Absolute 0.07 #; Lymphocytes # 1.1 10*3/uL (1.4-4.0); Lymphocytes % 11.4 % (21.2-54.2); Mean Corpuscular HGB Conc 31.3 GM/DL (32-36); Mean Corpuscular Volume 75.5 FL (87-102); Mean Platelet Volume 9.9 FL (9.6-12.0); Monocytes % 8.5 % (1.7-12.7); Neutrophils % 75.8 % (38.7-73.9); Platelet Count 182 T/CUMM (130-400); Red Blood Count 5.03 MC/CUMM (3.8-5.5); Red Cell Distribution Width 13.8 % (9.3-17.3); White Blood Count 9.3 T/CUMM (4-12)
[2019-07-03 05:17] LABS: Calcium 8.9 MG/DL (8.5-10.1); Osmolality,Calculated 282.7 MOS/KG (273-304)
[2019-07-03] MEDS: METOPROLOL TARTRATE 25 MG TABLET PO SCH ×2 (08:56→22:33)
[2019-07-03] MEDS: CALCITRIOL 0.25 MCG CAPSULE PO SCH (08:56)
[2019-07-03] MEDS: amLODIPine 10 MG TABLET PO SCH (08:57)
[2019-07-03] MEDS: LACTOBACILLUS ACIDOPHILUS/BULGARICUS CAPLET PO SCH (08:57)
[2019-07-03] MEDS: LISINOPRIL 20 MG TABLET PO SCH (08:57)
[2019-07-03] MEDS: MULTIVITAMIN (BEROCCA) TABLET PO SCH (08:57)
[2019-07-04] MEDS: CLINDAMYCIN INJ 300 MG in PREMIX 1 EACH IV SCH ×2 (00:17→09:14)
[2019-07-04 04:48] LABS: Basophils % 0.4 % (0.0-0.8); Eosinophils # 0.2 10*3/uL (0.0-0.87); Eosinophils % 2.3 % (0.00-10.9); Hematocrit 35.2 VOL% (42.0-52.0); Immature Granulocytes Absolute 0.08 #; Lymphocytes % 11.6 % (21.2-54.2); Mean Corpuscular HGB Conc 31.3 GM/DL (32-36); Mean Platelet Volume 9.8 FL (9.6-12.0); Monocytes % 9.9 % (1.7-12.7); Neutrophils % 74.8 % (38.7-73.9); Platelet Count 169 T/CUMM (130-400); Red Blood Count 4.63 MC/CUMM (3.8-5.5); Red Cell Distribution Width 14.2 % (9.3-17.3); White Blood Count 8.4 T/CUMM (4-12)
[2019-07-04 05:07] LABS: Calcium 8.6 MG/DL (8.5-10.1); Osmolality,Calculated 287.5 MOS/KG (273-304)
[2019-07-04] MEDS: amLODIPine 10 MG TABLET PO SCH (09:09)
[2019-07-04] MEDS: CALCITRIOL 0.25 MCG CAPSULE PO SCH (09:09)
[2019-07-04] MEDS: LACTOBACILLUS ACIDOPHILUS/BULGARICUS CAPLET PO SCH (09:09)
[2019-07-04] MEDS: LISINOPRIL 20 MG TABLET PO SCH (09:09)
[2019-07-04] MEDS: METOPROLOL TARTRATE 25 MG TABLET PO SCH (09:09)
[2019-07-04] MEDS: MULTIVITAMIN (BEROCCA) TABLET PO SCH (09:09)
[2019-07-04 15:43] VITALS: BP 115/71
== END 2019-07-04 16:21 | disposition home or self-care (01) | DRG 907 ==
LOC: N.EDINP 09:59 → N.ED 09:59 → N.5E 12:40
PROVIDERS: ADMIT Hospitalist; ATTEND Hospitalist

== ENCOUNTER 2020-12-25 17:30 | Inpatient (IN) ==
[2020-12-25] MEDS ORDERED: ONDANSETRON 4 MG/2 ML VIAL IV STA (18:43)
[2020-12-25] MEDS ORDERED: hydrALAZINE 20 MG/1 ML VIAL IV STA (18:43)
[2020-12-25] MEDS ORDERED: HYDROmorphone 2 MG/1 ML VIAL IV STA (18:43)
[2020-12-25 19:02] LABS: Basophils % 0.3 % (0.0-0.8); Hematocrit 34.1 VOL% (42.0-52.0); Hemoglobin 11.2 GM/DL (14.0-18.0); Immature Granulocytes % 0.3 %; Immature Granulocytes Absolute 0.01 #; Lymphocytes # 0.6 10*3/uL (1.4-4.0); Lymphocytes % 16.7 % (21.2-54.2); Mean Corpuscular HGB Conc 32.8 GM/DL (32-36); Mean Corpuscular Volume 68.5 FL (87-102); Monocytes % 9.4 % (1.7-12.7); Neutrophils % 73.3 % (38.7-73.9); Platelet Count 74 T/CUMM (130-400); Red Blood Count 4.98 MC/CUMM (3.8-5.5); White Blood Count 3.8 T/CUMM (4-12)
[2020-12-25 19:23] LABS: Alanine Aminotransferase 20 U/L (16-61); Albumin 2.6 G/DL (3.4-5.0); Alkaline Phosphatase 69 U/L (45-117); Amylase 163 U/L (25-115); Aspartate Amino Transferase 24 U/L (0-37); Bilirubin,Total < 0.39 MG/DL (0.2-1.0); Blood Urea Nitrogen 102 MG/DL (7-18); Calcium 8.9 MG/DL (8.5-10.1); Carbon Dioxide 20 MMOL/L (21-32); Estimated Glom Filtration Rate 5 ML/MIN; Glucose 60 MG/DL (74-106); Osmolality,Calculated 291.7 MOS/KG (273-304); Sodium 131 MMOL/L (136-145); Total Protein 7.9 G/DL (6.4-8.2)
[2020-12-25 19:29] LABS: Potassium 6.7 MMOL/L (3.5-5.1)
[2020-12-25] MEDS ORDERED: INSULIN REGULAR 10 UNIT, CALCIUM GLUCONATE 1,000 MG in DEXTROSE 10% 250 ML IV ONE (19:30)
[2020-12-25] MEDS ORDERED: VANCOMYCIN INJ 1,000 MG in SODIUM CHLORIDE 0.9% 250 ML IV STA (19:31)
[2020-12-25] MEDS ORDERED: DEXTROSE 50% 25 GM/50 ML VIAL IV STA (19:33)
[2020-12-25] MEDS ORDERED: SODIUM BICARBONATE 50 MEQ/50 ML VIAL IV STA (19:58)
[2020-12-25] MEDS ORDERED: DEXTROSE 50% 25 GM/50 ML VIAL IV PRN (20:05)
[2020-12-25] MEDS ORDERED: GLUCAGON 1 MG VIAL IM PRN (20:05)
[2020-12-25] MEDS ORDERED: INSULIN REGULAR 100 UNIT/ML IV STA (21:04)
[2020-12-25] MEDS: cloNIDine 0.1 MG TABLET PO SCH (22:13)
[2020-12-26 00:45] LABS: Calcium 9.1 MG/DL (8.5-10.1); Osmolality,Calculated 294.4 MOS/KG (273-304)
[2020-12-26] MEDS ORDERED: DEXTROSE 50% 25 GM/50 ML SYRINGE IV ONE (00:57)
[2020-12-26] MEDS: hydrALAZINE 20 MG/1 ML VIAL IV PRN ×4 (01:19→17:34)
[2020-12-26 05:09] LABS: Basophils % 0.2 % (0.0-0.8); Hematocrit 34.7 VOL% (42.0-52.0); Hemoglobin 11.2 GM/DL (14.0-18.0); Immature Granulocytes % 0.2 %; Immature Granulocytes Absolute 0.01 #; Lymphocytes # 0.6 10*3/uL (1.4-4.0); Lymphocytes % 13.7 % (21.2-54.2); Mean Corpuscular HGB Conc 32.3 GM/DL (32-36); Mean Corpuscular Volume 69.5 FL (87-102); Monocytes % 8.7 % (1.7-12.7); Neutrophils % 77.2 % (38.7-73.9); Platelet Count 89 T/CUMM (130-400); Red Blood Count 4.99 MC/CUMM (3.8-5.5); White Blood Count 4.6 T/CUMM (4-12)
[2020-12-26 05:36] LABS: Albumin 2.3 G/DL (3.4-5.0); Bilirubin,Total 1.2 MG/DL (0.2-1.0); Calcium 9.2 MG/DL (8.5-10.1); Osmolality,Calculated 295.5 MOS/KG (273-304); Total Protein 7.9 G/DL (6.4-8.2)
[2020-12-26 05:48] LABS: INR 1.1; PT Patient Result 12.3 SECS (10.5-12.0); Partial Thromboplastin Time 29.2 SECS (23.9-33.8)
[2020-12-26 05:50] LABS: Potassium 6.9 MMOL/L (3.5-5.1)
[2020-12-26] MEDS ORDERED: SODIUM POLYSTYRENE SULFATE 15 GM/60 ML BOTTLE PO ONE (05:54)
[2020-12-26] MEDS ORDERED: INSULIN REGULAR 10 UNIT, CALCIUM GLUCONATE 1,000 MG in DEXTROSE 10% 250 ML IV ONE (05:55)
[2020-12-26 06:13] LABS: Anisocytosis 2+; Burr Cells 1+; Platelet Estimate Decreased
[2020-12-26] MEDS: lisinopriL 20 MG TABLET PO SCH (08:57)
[2020-12-26] MEDS: amLODIPine 10 MG TABLET PO SCH (08:57)
[2020-12-26] MEDS: FERROUS SULFATE 325 MG TABLET PO SCH (08:57)
[2020-12-26] MEDS: cloNIDine 0.1 MG TABLET PO SCH ×2 (08:57→21:05)
[2020-12-27] MEDS: hydrALAZINE 20 MG/1 ML VIAL IV PRN ×3 (04:37→20:45)
[2020-12-27] MEDS: cloNIDine 0.1 MG TABLET PO SCH ×2 (08:05→20:42)
[2020-12-27] MEDS: FERROUS SULFATE 325 MG TABLET PO SCH (08:05)
[2020-12-27] MEDS: amLODIPine 10 MG TABLET PO SCH (08:05)
[2020-12-27] MEDS: lisinopriL 20 MG TABLET PO SCH (08:05)
[2020-12-27 10:41] LABS: % Iron Saturation 22.4 % (18-50); Ferritin 829.9 ng/ml (26-388)
[2020-12-27 10:50] LABS: Total Protein 7.4 G/DL (6.4-8.2)
[2020-12-28] MEDS: hydrALAZINE 20 MG/1 ML VIAL IV PRN ×4 (04:18→20:04)
[2020-12-28 05:10] LABS: Eosinophils % 0.3 % (0.00-10.9); Hematocrit 26.1 VOL% (42.0-52.0); Hemoglobin 8.5 GM/DL (14.0-18.0); Immature Granulocytes % 0.3 %; Immature Granulocytes Absolute 0.01 #; Lymphocytes # 0.5 10*3/uL (1.4-4.0); Lymphocytes % 14.7 % (21.2-54.2); Mean Corpuscular HGB Conc 32.6 GM/DL (32-36); Mean Corpuscular Volume 70.2 FL (87-102); Monocytes % 9.8 % (1.7-12.7); Neutrophils % 74.9 % (38.7-73.9); Platelet Count 64 T/CUMM (130-400); Red Blood Count 3.72 MC/CUMM (3.8-5.5); White Blood Count 3.7 T/CUMM (4-12)
[2020-12-28 05:44] LABS: Hypochromasia 2+; Microcytosis 1+; Platelet Estimate Decreased
[2020-12-28 05:58] LABS: Calcium 8.8 MG/DL (8.5-10.1); Potassium 4.5 MMOL/L (3.5-5.1)
[2020-12-28] MEDS: cloNIDine 0.1 MG TABLET PO SCH ×2 (08:18→20:02)
[2020-12-28] MEDS: lisinopriL 20 MG TABLET PO SCH (08:18)
[2020-12-28] MEDS: amLODIPine 10 MG TABLET PO SCH (08:18)
[2020-12-28] MEDS: FERROUS SULFATE 325 MG TABLET PO SCH (08:19)
[2020-12-28] MEDS: ZALEPLON 5 MG CAPSULE PO PRN (21:06)
[2020-12-29 03:55] LABS: Basophils % 0.2 % (0.0-0.8); Eosinophils % 0.7 % (0.00-10.9); Hematocrit 27.6 VOL% (42.0-52.0); Hemoglobin 8.8 GM/DL (14.0-18.0); Immature Granulocytes % 0.4 %; Immature Granulocytes Absolute 0.02 #; Lymphocytes # 0.7 10*3/uL (1.4-4.0); Lymphocytes % 14.9 % (21.2-54.2); Mean Corpuscular HGB Conc 31.9 GM/DL (32-36); Mean Corpuscular Volume 70.8 FL (87-102); Monocytes % 8.9 % (1.7-12.7); Neutrophils % 74.9 % (38.7-73.9); Platelet Count 69 T/CUMM (130-400); Red Cell Distribution Width 23.3 % (9.3-17.3); White Blood Count 4.5 T/CUMM (4-12)
[2020-12-29 04:13] LABS: Eosinophils 1 % (0-10); Hypochromasia 1+; Lymphocytes 15 % (20-55); Microcytosis 1+; Platelet Estimate Decreased; Segmented Neutrophils 82 % (50-85); Total Cells Counted 100
[2020-12-29 04:15] LABS: Calcium 8.7 MG/DL (8.5-10.1); Potassium 4.6 MMOL/L (3.5-5.1)
[2020-12-29] MEDS: amLODIPine 10 MG TABLET PO SCH (08:54)
[2020-12-29] MEDS: cloNIDine 0.1 MG TABLET PO SCH ×2 (08:54→20:50)
[2020-12-29] MEDS: lisinopriL 20 MG TABLET PO SCH (08:54)
[2020-12-29] MEDS: FERROUS SULFATE 325 MG TABLET PO SCH (08:54)
[2020-12-29 09:15] LABS: Immunoglobulin A (Chem) 737 MG/DL (70-400); Immunoglobulin G (Chem) 2180 MG/DL (700-1600); Immunoglobulin M (Chem) 34 MG/DL (40-230); Total Protein (Chem) 7.4 G/DL (6.4-8.3)
[2020-12-29 09:16] LABS: Random Urine Protein (Bench) 985 MG/DL (<11.9)
[2020-12-29] MEDS: MAGNESIUM CHLORIDE 64 MG TABLET PO SCH (11:17)
[2020-12-29 11:23] LABS: Albumin (SPE) 3.5 G/DL (3.2-5.3); Albumin (SPE) Rel % 46.9 %; Alpha 1 (SPE) 0.2 G/DL (0.1-0.4); Alpha 2 (SPE) 0.6 G/DL (0.4-1.0); Alpha 2 (SPE) Rel % 8.7 %; Beta (SPE) 0.7 G/DL (0.5-1.1); Gamma (SPE) 2.4 G/DL (0.7-1.7); Gamma (SPE) Rel % 32.4 %
[2020-12-29 13:22] LABS: Albumin (UPER) 597.9 MG/DL; Albumin (UPER) Rel% 60.7 %; Alpha 1 (UPER) 49.3 MG/DL; Alpha 2 (UPER) 54.2 MG/DL; Alpha 2 (UPER) Rel % 5.5 %; Beta (UPER) 61.1 MG/DL; Beta (UPER) Rel % 6.2 %; Gamma (UPER) 222.6 MG/DL; Gamma (UPER) Rel % 22.6 %
[2020-12-29] MEDS: hydrALAZINE 20 MG/1 ML VIAL IV PRN ×2 (15:26→17:50)
[2020-12-29] MEDS: ZALEPLON 5 MG CAPSULE PO PRN (23:37)
[2020-12-30 09:50] LABS: Immuno Free Light Chain Kappa 100.4 MG/DL (0.33-1.94); Immuno Free Light Chain Lambda 92.97 MG/DL (0.57-2.63); Immuno Free Light Chain Ratio 1.08 MG/DL (0.26-1.65)
[2020-12-30] MEDS: amLODIPine 10 MG TABLET PO SCH (13:29)
[2020-12-30] MEDS: cloNIDine 0.1 MG TABLET PO SCH ×2 (13:29→20:32)
[2020-12-30] MEDS: MAGNESIUM CHLORIDE 64 MG TABLET PO SCH (13:29)
[2020-12-30] MEDS: lisinopriL 20 MG TABLET PO SCH (13:30)
[2020-12-30] MEDS: FERROUS SULFATE 325 MG TABLET PO SCH (13:32)
[2020-12-31] MEDS: ZALEPLON 5 MG CAPSULE PO PRN (00:41)
[2020-12-31] MEDS: hydrALAZINE 20 MG/1 ML VIAL IV PRN (05:26)
[2020-12-31 07:02] LABS: Basophils % 0.2 % (0.0-0.8); Eosinophils # 0.1 10*3/uL (0.0-0.87); Eosinophils % 2.1 % (0.00-10.9); Hematocrit 26.9 VOL% (42.0-52.0); Hemoglobin 8.7 GM/DL (14.0-18.0); Immature Granulocytes % 0.4 %; Immature Granulocytes Absolute 0.02 #; Lymphocytes # 0.6 10*3/uL (1.4-4.0); Lymphocytes % 10.8 % (21.2-54.2); Mean Corpuscular HGB Conc 32.3 GM/DL (32-36); Mean Corpuscular Volume 70.4 FL (87-102); Monocytes % 8.7 % (1.7-12.7); Neutrophils % 77.8 % (38.7-73.9); Platelet Count 57 T/CUMM (130-400); Red Blood Count 3.82 MC/CUMM (3.8-5.5); Red Cell Distribution Width 22.6 % (9.3-17.3); White Blood Count 5.2 T/CUMM (4-12)
[2020-12-31 07:20] LABS: Hypochromasia 1+; Microcytosis 1+; Platelet Estimate Decreased
[2020-12-31 07:30] LABS: Calcium 8.7 MG/DL (8.5-10.1); Potassium 4.4 MMOL/L (3.5-5.1)
[2020-12-31] MEDS: cloNIDine 0.1 MG TABLET PO SCH (09:16)
[2020-12-31] MEDS: FERROUS SULFATE 325 MG TABLET PO SCH (09:16)
[2020-12-31] MEDS: MAGNESIUM CHLORIDE 64 MG TABLET PO SCH (09:16)
[2020-12-31] MEDS: lisinopriL 20 MG TABLET PO SCH (09:17)
[2020-12-31] MEDS: amLODIPine 10 MG TABLET PO SCH (09:17)
[2020-12-31 11:11] LABS: Lymphocytes,Pleural Fluid 53 %; Monocytes,Pleural Fluid 1 %; Neutrophils,Pleural Fluid 46 %
[2020-12-31 11:12] LABS: RBC,Pleural Fluid 26282 T/CUMM
[2020-12-31 11:31] LABS: Amylase,Body Fluid 88 U/L; Glucose,Pleural Fluid 94 MG/DL; LDH,Body Fluid 105 U/L; Total Protein,Body Fluid 3.9 G/DL
[2020-12-31 12:28] VITALS: BP 157/79
== END 2020-12-31 14:06 | disposition home or self-care (01) | DRG 682 ==
LOC: N.ED 17:30 → N.EDINP 17:30 → N.TELES 12-26 00:16 → SUATTDRO 12-26 15:12
PROVIDERS: ADMIT Internal Medicine; ATTEND Internal Medicine Geriatric Medicine
PROC: IRTHORA (2020-12-29 13:35)

== ENCOUNTER 2021-01-13 16:01 | Observation (INO) ==
[2021-01-13 19:43] LABS: Basophils % 0.3 % (0.0-0.8); Eosinophils # 0.1 10*3/uL (0.0-0.87); Eosinophils % 2.2 % (0.00-10.9); Hematocrit 27.1 VOL% (42.0-52.0); Hemoglobin 8.5 GM/DL (14.0-18.0); Immature Granulocytes % 0.3 %; Immature Granulocytes Absolute 0.01 #; Lymphocytes # 0.5 10*3/uL (1.4-4.0); Lymphocytes % 16.8 % (21.2-54.2); Mean Corpuscular HGB Conc 31.4 GM/DL (32-36); Mean Corpuscular Volume 71.3 FL (87-102); Neutrophils % 71.4 % (38.7-73.9); Platelet Count 122 T/CUMM (130-400); Red Cell Distribution Width 21.2 % (9.3-17.3); White Blood Count 3.2 T/CUMM (4-12)
[2021-01-13] MEDS ORDERED: hydrALAZINE 20 MG/1 ML VIAL IV STA (19:47)
[2021-01-13 19:51] LABS: INR 1.1; PT Patient Result 12.2 SECS (10.5-12.0)
[2021-01-13 19:58] LABS: Alanine Aminotransferase 20 U/L (16-61); Albumin 2.2 G/DL (3.4-5.0); Alkaline Phosphatase 58 U/L (45-117); Aspartate Amino Transferase 24 U/L (0-37); Bilirubin,Total < 0.39 MG/DL (0.2-1.0); Blood Urea Nitrogen 39 MG/DL (7-18); Calcium 8.4 MG/DL (8.5-10.1); Carbon Dioxide 31 MMOL/L (21-32); Estimated Glom Filtration Rate 12 ML/MIN; Glucose 105 MG/DL (74-106); Osmolality,Calculated 274.4 MOS/KG (273-304); Potassium 4.3 MMOL/L (3.5-5.1); Sodium 133 MMOL/L (136-145); Total Protein 7.9 G/DL (6.4-8.2)
[2021-01-13] MEDS ORDERED: MORPHINE 4 MG/1 ML VIAL IV PRN (21:06)
[2021-01-13] MEDS ORDERED: ACETAMINOPHEN 325 MG TABLET PO PRN (21:06)
[2021-01-13] MEDS ORDERED: diphenhydrAMINE CAP 25 MG CAPSULE PO PRN (21:06)
[2021-01-13] MEDS ORDERED: guaiFENesin/DM ER 600-30 MG TABLET PO PRN (21:06)
[2021-01-13] MEDS ORDERED: GLUCAGON 1 MG VIAL IM PRN (21:06)
[2021-01-13] MEDS ORDERED: NICOTINE 21 MG/24 HR PATCH TRANSDERM PRN (21:06)
[2021-01-13] MEDS ORDERED: ONDANSETRON 4 MG/2 ML VIAL IV PRN (21:06)
[2021-01-13] MEDS ORDERED: DEXTROSE 50% 25 GM/50 ML VIAL IV PRN (21:06)
[2021-01-13] MEDS: hydrALAZINE 20 MG/1 ML VIAL IV PRN (22:50)
[2021-01-14] MEDS: traZODone 50 MG TABLET PO PRN ×2 (00:16→20:39)
[2021-01-14] MEDS: hydrALAZINE 20 MG/1 ML VIAL IV PRN (04:18)
[2021-01-14 05:37] LABS: Basophils % 0.7 % (0.0-0.8); Eosinophils # 0.1 10*3/uL (0.0-0.87); Hematocrit 25.8 VOL% (42.0-52.0); Hemoglobin 8.4 GM/DL (14.0-18.0); Immature Granulocytes % 0.4 %; Immature Granulocytes Absolute 0.01 #; Lymphocytes # 0.6 10*3/uL (1.4-4.0); Lymphocytes % 23.2 % (21.2-54.2); Mean Corpuscular HGB Conc 32.6 GM/DL (32-36); Mean Corpuscular Volume 69.7 FL (87-102); Mean Platelet Volume 7.9 FL (9.6-12.0); Monocytes % 12.4 % (1.7-12.7); Neutrophils % 60.3 % (38.7-73.9); Platelet Count 104 T/CUMM (130-400); Red Cell Distribution Width 20.8 % (9.3-17.3); White Blood Count 2.7 T/CUMM (4-12)
[2021-01-14 05:57] LABS: Albumin 2.1 G/DL (3.4-5.0); Bilirubin,Total 0.5 MG/DL (0.2-1.0); Calcium 8.4 MG/DL (8.5-10.1); Osmolality,Calculated 288.4 MOS/KG (273-304); Potassium 5.1 MMOL/L (3.5-5.1); Total Protein 7.4 G/DL (6.4-8.2)
[2021-01-14 05:59] LABS: Eosinophils 6 % (0-10); Hypochromasia 1+; Lymphocytes 20 % (20-55); Microcytosis 1+; Platelet Estimate Decreased; Segmented Neutrophils 68 % (50-85); Total Cells Counted 100
[2021-01-15 06:15] LABS: Basophils % 0.3 % (0.0-0.8); Eosinophils % 0.3 % (0.00-10.9); Hematocrit 26.7 VOL% (42.0-52.0); Hemoglobin 8.6 GM/DL (14.0-18.0); Immature Granulocytes % 0.3 %; Immature Granulocytes Absolute 0.01 #; Lymphocytes # 0.6 10*3/uL (1.4-4.0); Lymphocytes % 20.3 % (21.2-54.2); Mean Corpuscular HGB Conc 32.2 GM/DL (32-36); Mean Corpuscular Volume 71.2 FL (87-102); Monocytes % 13.1 % (1.7-12.7); Neutrophils % 65.7 % (38.7-73.9); Platelet Count 127 T/CUMM (130-400); Red Blood Count 3.75 MC/CUMM (3.8-5.5); White Blood Count 2.9 T/CUMM (4-12)
[2021-01-15 06:36] LABS: Hypochromasia 1+; Microcytosis 1+; Target Cells Slight
[2021-01-15 06:37] LABS: Platelet Estimate Adequate
[2021-01-15 06:47] LABS: Calcium 8.4 MG/DL (8.5-10.1)
[2021-01-15] MEDS: hydrALAZINE 20 MG/1 ML VIAL IV PRN ×2 (08:11→13:19)
[2021-01-15 13:32] VITALS: BP 180/82
== END 2021-01-15 14:05 | disposition home or self-care (01) ==
LOC: N.EDINP 16:01 → N.ED 16:01 → N.5E 22:24
PROVIDERS: ADMIT Emergency Medicine; ATTEND Emergency Medicine